=== PATIENT | female | born 1935 | race Caucasian/White ===

== ENCOUNTER 2017-07-09 14:40 | Inpatient (IN) ==
[2017-07-09] MEDS ORDERED: ONDANSETRON 4 MG/2 ML VIAL ONE ×2 (14:54→16:01)
--- NOTE | 2017-07-09 15:20 | CT Report ---
Exam: CT scan of brain without contrast Date: 07/09/2017 Indication: Headache weakness and nausea Comparison: 04/11/2017 Patient's classification: Emergency department Technical: Images were obtained from the skull base to the vertex without the use of intravenous contrast. Dose reduction was performed with decreasing kv and mA and automated exposure Total DLP: 942.4 mGy*cm Findings: The brainstem is unremarkable. The cerebellum is intact. There is an old lacunar infarction in the right basal ganglia unchanged from prior exam. Several small lacunar infarcts are present on the right Small vessel changes are present in the periventricular and subcortical white matter regions bilaterally. The paranasal sinuses reveal near complete opacification of the left maxillary sinus. Remaining paranasal sinuses are unremarkable. Globes and sella and mastoids are intact. Impression: 1. 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 2. Small vessel ischemic change 3. No acute hemorrhage, infarction or mass effect clearly seen. PROCEDURE INTERPRETED AT [facility] DEPARTMENT OF RADIOLOGY Final Report Signed by: Dr. Hoang Monson
[2017-07-09 15:35] LABS: Basophils # 0.1 10*3/uL (0.0-0.2); Basophils % 0.8 % (0.0-0.8); Eosinophils # 0.3 10*3/uL (0.0-0.87); Eosinophils % 3.9 % (0.00-10.9); Hemoglobin 15.2 GM/DL (12.0-16.0); Immature Granulocytes % 0.2 %; Immature Granulocytes Absolute 0.02 #; Lymphocytes # 2.9 10*3/uL (1.4-4.0); Lymphocytes % 33.9 % (21.3-54.2); Mean Corpuscular HGB Conc 33.8 GM/DL (32-36); Mean Corpuscular Hemoglobin 30 PG (27-34); Mean Corpuscular Volume 88.9 FL (87-102); Mean Platelet Volume 11.7 FL (9.6-12.0); Monocytes # 0.8 10*3/uL (0.11-0.8); Monocytes % 9.7 % (1.7-12.7); Neutrophils # 4.3 10*3/uL (1.4-7.4); Neutrophils % 51.5 % (38.7-73.9); Platelet Count 190 T/CUMM (130-400); Red Blood Count 5.06 MC/CUMM (3.8-5.5); Red Cell Distribution Width 13.9 % (9.3-17.3); White Blood Count 8.4 T/CUMM (4-12)
--- NOTE | 2017-07-09 15:35 | EKG Report ---
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
[2017-07-09 15:52] LABS: Alanine Aminotransferase 25 U/L (13-56); Albumin 3.9 G/DL (3.4-5.0); Alkaline Phosphatase 97 U/L (45-117); Amylase 51 U/L (25-115); Aspartate Amino Transferase 24 U/L (0-37); Blood Urea Nitrogen 24 MG/DL (7-18); Calcium 9.2 MG/DL (8.5-10.1); Glucose 167 MG/DL (74-106); Osmolality,Calculated 286.4 MOS/KG (273-304); Potassium 4.2 MMOL/L (3.5-5.1); Sodium 140 MMOL/L (136-145); Total Protein 7.2 G/DL (6.4-8.3); Troponin I Only < 0.015 NG/ML (0.00-0.045)
[2017-07-09] MEDS ORDERED: HYDROmorphone 2 MG/1 ML VIAL ONE (16:01)
[2017-07-09] MEDS ORDERED: HYDROmorphone 2 MG/1 ML VIAL IV STA (16:02)
[2017-07-09] MEDS ORDERED: ONDANSETRON 4 MG/2 ML VIAL IV STA ×2 (16:02→16:08)
[2017-07-09] MEDS ORDERED: SODIUM CHLORIDE 0.9% 1,000 ML IV STA (16:08)
--- NOTE | 2017-07-09 16:17 | Emergency Department Note ---
Bharat Helm Manpreet, am scribing for, and in the presence of, Baylee Palma DO 15: 08. ILouie Debra, DO, personally performed the services described in this documentation, ascribed by Dave Nicholson in my presence, and it is both accurate and complete 616 . Arrival - Arrival Chief Complaint: Syncope ED Nursing Triage Note: pt walked outof her house and got dizzy with nausea. then pt passed out. pt had lt facial droop per daughter. no droop noted at triage. acu check is 160 Mode of Arrival: Stretcher Limitations: No Limitations Source: Family (Daughter) - History of Present Illness HPI Narrative: Pt is a 82 y/o female who presents to the ED with CC of getting dizzy and passing out with N/V. Pt is accompanied by her daughter who states the pt had a facial droop and had a stroke 3 years ago with no residual deficits. Pt apparently passed out again while in the room and c/o of a AGUAYO. Pt is noted to have left sided facial dropping and vomiting yellowish-green phlegm.Pt has a PMHx of CHF, CVA, A-fib, and HTN. Pt was responsive to questions and stated she felt tired and wanted to sleep. No other pains/complaints reported to the ED. Onset (ago): hour(s) Consistency: constant Severity: moderate Allergies/Adverse Reactions: Allergies Allergy/AdvReac Type Severity Reaction Status Date / Time codeine Allergy ANAPHYLAXIS Verified 02/22/15 21:22 Penicillins Allergy ANAPHYLAXIS Verified 02/22/15 21:22 Home Medications: Home Medications Medication Instructions Recorded Confirmed Type ALPRAZolam [Xanax] 0.5 mg PO Q6H 02/22/15 02/22/15 History Apixaban [Eliquis] 5 mg PO BID 02/22/15 02/22/15 History Carbidopa/Levodopa [Carbidopa-Levo 1 each PO DAILY 02/22/15 02/22/15 History 25-100 mg Odt] Ferrous Sulfate 325 mg PO DAILY 02/22/15 02/22/15 History Levothyroxine Tab [Synthroid Tab] 100 mcg PO DAILY@0700 02/22/15 02/22/15 History Montelukast Tab [Singulair Tab] 10 mg PO DAILY 02/22/15 02/22/15 History Pantoprazole Tab [Protonix Tab] 40 mg PO DAILY 02/22/15 02/22/15 History Trazodone HCl 100 mg PO BEDTIME 02/22/15 02/22/15 History buPROPion HCl [Bupropion Xl] 300 mg PO DAILY 02/22/15 02/22/15 History metFORMIN [Glucophage] 500 mg PO BID W/MEALS 02/22/15 02/22/15 History Digoxin Tab [Lanoxin Tab] 0.25 mg PO DAILY@1300 #30 tablet 02/26/15 Rx Insulin Detemir [Levemir] 15 unit SUBCUT DAILY W/SUPPER #10 02/26/15 Rx ml Magnesium Oxide 400 mg PO BID #60 tablet 02/26/15 Rx Metoprolol Tartrate Tab [Lopressor 50 mg PO BID #60 tablet 02/26/15 Rx Tab] Ibuprofen Tab [Motrin Tab] 600 mg PO TID #21 tablet 03/21/16 Rx Clindamycin Cap [Cleocin Cap] 300 mg PO Q8HR #21 capsule 04/11/17 Rx traMADol TAB [Ultram] 50 mg PO Q6H #20 tablet 04/11/17 Rx Review of System - Review of System 12 point system: reviewed and no additional remarkable complaints except as stated - Review of System Constitutional: Present: diaphoresis, weakness, other (Dizzy). Absent: chills, fever Respiratory: Absent: cough, respiratory distress, wheezing Cardiovascular: Present: syncope. Absent: chest pain, dyspnea on exertion Gastrointestinal: Present: nausea, vomiting. Absent: diarrhea Neurological: Present: headache. Absent: numbness, paresthesias Medical,Surgical,& Family Hx - Medical History Cardio: History of: Cardiac Dysrhythmia (recently treated for atrial flutter by [place] engineer systems who placed the pat), CHF, Hypertension HEENT: History of: Ear Problem Endocrine: History of: Diabetes Mellitus (NIDDM) Respiratory: History of: Asthma Gastrointestinal: History of: Gastrointestinal Bleed - Surgical History Abdominal Surgeries: Surgical HX of: Cholecystectomy - Family History Family History: Reports;: Family Diabetes (brother and son), Family Heart Disease (brother and sister), Family Hypertension (brother, son) - Social History Smoking Status: Never smoker Frequency of Alcohol Use: None Type of Drug Use: None Exam Vital Signs: Vital Signs Temperature 97.5 F L 07/09/17 14:46 Pulse Rate 98 H 07/09/17 14:46 Respiratory Rate 20 07/09/17 15:18 Blood Pressure 155/89 07/09/17 14:46 O2 Sat by Pulse Oximetry 95 07/09/17 14:46 - General General appearance: alert - Head Head exam: Present: atraumatic, normocephalic - Eye Eye exam: Present: normal appearance, PERRL, EOMI - ENT ENT exam: Present: normal exam, normal oropharynx, TM's normal bilaterally - Neck Neck exam: Present: normal inspection, full ROM - Chest Chest inspection: Present: normal inspection, symmetric chest wall rise. Absent : tenderness - Respiratory Respiratory exam: Present: normal lung sounds bilaterally. Absent: respiratory distress - Cardiovascular Cardiovascular exam: Present: regular rate, irregular rhythm - Abdominal Exam Abdominal exam: Present: soft, normal bowel sounds - Extremities Exam Extremities exam: Present: normal inspection, full ROM. Absent: tenderness - Back Exam Back exam: Present: normal inspection, full ROM. Absent: tenderness - Psychiatric Psychiatric exam: Present: normal affect, normal mood - Skin Skin exam: Present: diaphoresis. Absent: normal color (Pale) Course Course Narrative: Spoke with Dr. Miguel who will admit patient. I believe it is patient's be put in the ICU for closer observation. Dr. Miguel agrees. Patient is stable at this time Results - Labs CBC & BMP: 07/09/17 14:58 07/09/17 14:58 Lab Results: I have reviewed the patients labs Labs: Laboratory Tests 07/09/17 14:58 WBC 8.4 RBC 5.06 Hgb 15.2 Hct 45.0 MCV 88.9 MCH 30 MCHC 33.8 RDW 13.9 Plt Count 190 MPV 11.7 Neut % (Auto) 51.5 Lymph % (Auto) 33.9 [place] % (Auto) 9.7 Eos % (Auto) 3.9 Baso % (Auto) 0.8 Neut # (Auto) 4.3 Lymph # (Auto) 2.9 [place] # (Auto) 0.8 Eos # (Auto) 0.3 Baso # (Auto) 0.1 Immature Gran % 0.2 Nucleated RBC % 0.0 Immature Gran # 0.02 Nucleated RBCs # 0.00 Immature Plt Fraction 0.0 Laboratory Tests 07/09/17 14:58 Sodium 140 Potassium 4.2 Chloride 108 H Carbon Dioxide 24 Anion Gap 12.2 BUN 24 H Creatinine 1.00 GFR Calculation 54 BUN/Creatinine Ratio 24.00 H Glucose 167 H Calculated Osmolality 286.4 Calcium 9.2 Magnesium 2.0 Total Bilirubin 0.80 AST 24 ALT 25 Alkaline Phosphatase 97 Total Creatine Kinase 51 CK-MB (CK-2) < 1.0 Troponin I < 0.015 Total Protein 7.2 Albumin 3.9 Globulin 3.3 Albumin/Globulin Ratio 1.1 Amylase 51 Lipase 187.0 Laboratory Tests 07/09/17 14:58 B-Natriuretic Peptide 208 H - Diagnostic Findings Procedure: CT: report reviewed by me ("CT Head w/o Con: 1. 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 2. Small vessel ischemic change. 3. No acute hemorrhage, infarction or mass effect clearly seen.") Disposition Clinical Impression: Vasovagal syncope, Dehydration, Nausea & vomiting Case discussed with: patient Disposition: Still a Patient Condition: Guarded Time of Disposition: 16:36
[2017-07-09] MEDS ORDERED: ONDANSETRON 4 MG/2 ML VIAL IV PRN (16:38)
--- NOTE | 2017-07-09 16:47 | EKG Report ---
Stationary ECG Study 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
--- NOTE | 2017-07-09 16:57 | Family Practice History&Phys ---
Assessment and Plan (1) Syncopal episodes Status: Acute Assessment and plan: Multiple, possibly from cardiac origin versus dehydration, will follow cardiology's recommendation Continue IV fluids, n.p.o., on Zofran for nausea vomiting, admit to cCU, under Dr. Greenberg service 2. Generalized weakness, possibly secondary to IV VD, 3. Continue Synthroid for hypothyroidism 4. Hyperglycemia, will do sliding scale, fingersticks glucose 5.HTN ,stable, continue current antihypertensives, Current Visit: Yes Qualifiers: Qualified Code(s): R55 - Syncope and collapse (2) Cardiac dysrhythmia, unspecified Status: Acute Current Visit: Yes (3) Nausea & vomiting Status: Acute Current Visit: Yes (4) Dehydration Status: Acute Current Visit: Yes (5) Hypothyroidism Status: Chronic Current Visit: Yes (6) Essential hypertension Status: Chronic Current Visit: Yes (7) Alzheimer's dementia Status: Chronic Current Visit: Yes (8) Depression Status: Chronic Current Visit: Yes Qualifiers: Depression Type: major depressive disorder (9) Generalized weakness Status: Acute Current Visit: Yes (10) Hyperglycemia Status: Chronic Current Visit: Yes History of Present Illness Chief complaint: syncopial episodes today, N/V/D since 1 week History of present illness: Ms. Miranda is a 82 year old female PCP: , seen him in clinic 4 weeks ago Consult done to [employer] Technician,Neurologist, Has h/o hypothyroidism, hypertension, depression, Alzheimer's dementia, GERD, hyperglycemia on diet and lifestyle changes history obtained from grand daughter and daughter , , pt was with nausea , vomiting , diarrhea since 1 week, pt passed out while walking out of the house at 1.30 pm today, was caught by grand son,no head injury, last meal last night, today drank only soda pop. last BM not sure, no fever,no chest pain , no SOB reported by the patient in the past week the caregivers dizzy since few days, atrial fib 3 years ago, not on meds , was only on asprin hypothyroid , on synthroid 100 mcg, last TSH from clinic 0.59 A1c from 05/2016 was 5.1, Patient is drowsy, mentions feels sleepy. Patient was throwing up, stomach contents yellow bile colored, no blood was noticed. Also mentioned she hurts in her epigastric area. Patient was noted to go into the cardiac dysrhythmia while in the ER, was paced externally, hematologist Dr. Zafar was consulted immediately Reviewed clinic note from 06/08/2017, Patient taking Protonix 40 daily, Aricept 10 mg nightly, Namenda 28 mg extended release daily were stopped and Namzaric 28-10mg Q daily was started Celexa 20 mg p.o. daily, levothyroxine 100 mcg p.o. daily, bupropion 300 mg extended release 1 tablet daily , Lopressor 50 mg half tablet daily, aspirin 81 mg, trazodone 100 mg half tablet nightly Home Medications Medication Instructions Recorded Confirmed Type Pantoprazole Tab [Protonix Tab] 40 mg PO DAILY 02/22/15 07/09/17 History Trazodone HCl 100 mg PO BEDTIME 02/22/15 07/09/17 History Aspirin EC Tab 81 mg PO DAILY 07/09/17 07/09/17 History Citalopram [CeleXA] 40 mg PO DAILY 07/09/17 07/09/17 History Levothyroxine Tab [Synthroid Tab] 100 mcg PO DAILY@0700 07/09/17 07/09/17 History Meloxicam [Mobic] 7.5 mg PO DAILY 07/09/17 07/09/17 History Memantine HCl/Donepezil HCl 1 capsule PO QPM 07/09/17 07/09/17 History [Namzaric 28-10 mg] Metoprolol Tartrate Tab [Lopressor 25 mg PO DAILY 07/09/17 07/09/17 History Tab] Montelukast Tab [Singulair Tab] 10 mg PO DAILY 07/09/17 07/09/17 History buPROPion [Wellbutrin] 300 mg PO DAILY 07/09/17 07/09/17 History Allergies Allergy/AdvReac Type Severity Reaction Status Date / Time codeine Allergy ANAPHYLAXIS Verified 02/22/15 21:22 Penicillins Allergy ANAPHYLAXIS Verified 02/22/15 21:22 - Constitutional Constitutional: Present: as per HPI - EENT Eyes: Present: as per HPI Nose, mouth and throat: Present: as per HPI - Cardiovascular Cardiovascular: Present: as per HPI - Respiratory Respiratory: Present: as per HPI - Gastrointestinal Gastrointestinal: Present: as per HPI - Genitourinary Genitourinary: Present: as per HPI - Musculoskeletal Musculoskeletal: Present: as per HPI - Neurological Neurological: Present: as per HPI - Psychiatric Psychiatric: Present: as per HPI - Endocrine Endocrine: Present: as per HPI - Hematologic/Lymphatic Hematologic/Lymphatic: Present: as per HPI Medical,Surgical,& Family Hx - Medical History Cardio: History of: Cardiac Dysrhythmia (recently treated for atrial flutter by [place] hematologist who placed the pat), CHF, Hypertension HEENT: History of: Ear Problem Endocrine: History of: Diabetes Mellitus (NIDDM) Respiratory: History of: Asthma Gastrointestinal: History of: Gastrointestinal Bleed - Surgical History Abdominal Surgeries: Surgical HX of: Cholecystectomy - Family History Family History: Reports;: Family Diabetes (brother and son), Family Heart Disease (brother and sister), Family Hypertension (brother, son) - Social History Smoking Status: Never smoker Frequency of Alcohol Use: None Type of Drug Use: None Exam - Constitutional Vitals: Period Temp Pulse Resp BP Sys/Mcintyre Pulse Ox Last 24 Hr 97.5 F-97.5 F 98-98 18-20 155-155/89-89 95 Exam: Examination: GENERAL:drowsy but can be awaken, fatigued , elderly female pt, pt is throwing up while examining put O2 NC 2 lit, on ext pacemaker HEENT: decreased hearing,PERRLA. EOMI. Mucous membranes are moist. NECK: Neck is supple. No JVD. No carotid bruit. No thyromegaly. CVS: Regular rate and rhythm, heart rate of 97. S1 and S2 are normal. RESPIRATORY: Clear to ausculation bilaterally , No wheezes, rales or rhonchi. ABDOMEN: Soft and epigastric tenderness, no guarding, no rigidity, no rebound tenderness. Bowel sounds are present. No hepatosplenomegaly. EXT: No edema. LAWYER: Cranial nerves 2-12 grossly intact. Results - Labs CBC & BMP: 07/10/17 04:29 07/10/17 04:29 Lab Results: I have reviewed the past 24 hour labs - Impressions CT head, 07/09/2017 Impression: 1. 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 2. Small vessel ischemic change 3. No acute hemorrhage, infarction or mass effect clearly seen.
[2017-07-09] MEDS ORDERED: ATROPINE 1 MG/1 ML VIAL ONE (17:14)
--- NOTE | 2017-07-09 17:49 | Cardiology Consult Note ---
Assessment and Plan - Time spent with patient Time spent with patient: Greater than 30 minutes (1) Paroxysmal atrial fibrillation Status: Chronic Current Visit: Yes (2) Nausea & vomiting Status: Acute Current Visit: Yes (3) Essential hypertension Status: Chronic Current Visit: Yes (4) Hypothyroidism Status: Chronic Current Visit: Yes (5) Alzheimer's dementia Status: Chronic Current Visit: Yes (6) Cardiac dysrhythmia, unspecified Status: Acute Assessment and plan: bradycardia - sinus arrest versus Complete heart block. I will try to locate strips or capture if this recurs. Current Visit: Yes History of Present Illness - Data of Consult Patient: known to practice within the last 3 years Consult date: 07/09/17 Requesting Physician: Baylee Palma Primary care physician: Sam Greenberg (Carlos - Angeline) - Consult Narrative Reason for consult: Bradycardia History of present illness: Ms. Miranda is a 82 year old female who is extremely hard of hearing. We had to scream to communicate with the patient. He was very difficult to communicate during the exam. This may have limited by review of systems. The patient states that she came to the hospital because she went out in the yard to sit with her son and was sitting in the chair when she just fell over. I asked if she had palpitations and she said more than once that "no my heart is fine. . . I do not have any heart problems." The patient however apparently has a history of atrial fibrillation and has beeb on 2 AV andrea blocking agents at significant doses in the past. The have been decreased and she is currently taking metoprolol 25 mg daily. She was previously on metoprolol 50mg BID and digoxin 0.25mg daily but this has been stopped. Apparently she has had atrial fibrillation in the past and is on anticoagulation for this. Her Daughter reports that she has a history of atrial fibrillation seen at [facility] for "heart failure" and atrial fibrillation. She was seen there by Dr. Chan but now sees Dr. Gonzalez longitudinally in the clinic. I was called emergency room to see the patient upon arrival was not there I saw and examined the patient and she was being transferred to her bed in the CCU. She was in sinus rhythm with a first-degree AV block with a heart rate of 90. She has had several episodes of nausea and emesis in the emergency room with significant pauses that were symptomatic. Her daughter reports that the longest pause in the ED was not associated with nausea or emesis. Her EKG shows a normal QRS duration but a very prolonged MA interval with a P-wave following the T-wave. I do think this is a long MA interval. I ordered a stat digoxin level which is pending but now have learned that she is not on this medication and has not been for some aby. She has a temporary transcutaneous pacer leads on and has antiemetic medication available. She states that she chronically has problems with her stomach and frequently has nausea and vomiting. The patient told me this was chronic but her daughter states that this has been going on for only one week. I had a significantly difficult time communicating with the patient and I thought is was due solely to her difficulty hearing, but her daughter tells me that she also has a significant amount of dementia. She also has underlying diabetes. Given that she is not on the degree of AV andrea blocking agents that I was initially led to believe and that not all episodes of asystole are associated with nausea and vomiting and potentially vagal tone, the patient will likely need a permanent pacemaker. Her daughter who is a nurse and the ER doctor both used the term "asystole" but I have been unable to find any rhythm strips. It is nuclear to me if this is sinus arrest at which point she would clearly need PPM or if high degree AV block. I think a PPM is likely and potentially a LHC may be indicated prior to PPM. I will hold her NOAC and hold her NPO. There will be Atropine at the bedside and the patient will wear transcutaneous pacing pads. I don't think that temporary transvenous pacing is indicated at this point. Hopefully if this recurs, we can document a strip to better undstand the etiology. CC: Sam Greenberg MD - Home Medications and Allergies Home Medications: Home Medications Medication Instructions Recorded Confirmed Type ALPRAZolam [Xanax] 0.5 mg PO Q6H 02/22/15 02/22/15 History Apixaban [Eliquis] 5 mg PO BID 02/22/15 02/22/15 History Carbidopa/Levodopa [Carbidopa-Levo 1 each PO DAILY 02/22/15 02/22/15 History 25-100 mg Odt] Ferrous Sulfate 325 mg PO DAILY 02/22/15 02/22/15 History Levothyroxine Tab [Synthroid Tab] 100 mcg PO DAILY@0700 02/22/15 02/22/15 History Montelukast Tab [Singulair Tab] 10 mg PO DAILY 02/22/15 02/22/15 History Pantoprazole Tab [Protonix Tab] 40 mg PO DAILY 02/22/15 02/22/15 History Trazodone HCl 100 mg PO BEDTIME 02/22/15 02/22/15 History buPROPion HCl [Bupropion Xl] 300 mg PO DAILY 02/22/15 02/22/15 History metFORMIN [Glucophage] 500 mg PO BID W/MEALS 02/22/15 02/22/15 History Digoxin Tab [Lanoxin Tab] 0.25 mg PO DAILY@1300 #30 tablet 02/26/15 Rx Insulin Detemir [Levemir] 15 unit SUBCUT DAILY W/SUPPER #10 02/26/15 Rx ml Magnesium Oxide 400 mg PO BID #60 tablet 02/26/15 Rx Metoprolol Tartrate Tab [Lopressor 50 mg PO BID #60 tablet 02/26/15 Rx Tab] Ibuprofen Tab [Motrin Tab] 600 mg PO TID #21 tablet 03/21/16 Rx Clindamycin Cap [Cleocin Cap] 300 mg PO Q8HR #21 capsule 04/11/17 Rx traMADol TAB [Ultram] 50 mg PO Q6H #20 tablet 04/11/17 Rx Allergies/Adverse Reactions: Allergies Allergy/AdvReac Type Severity Reaction Status Date / Time codeine Allergy ANAPHYLAXIS Verified 02/22/15 21:22 Penicillins Allergy ANAPHYLAXIS Verified 02/22/15 21:22 - Constitutional Constitutional: Present: weakness. Absent: anorexia - EENT Eyes: Absent: blurry vision Ears: Present: decreased hearing - Cardiovascular Cardiovascular: Present: lightheadedness, other (syncope associated with documented pauses). Absent: chest pain at rest, chest pain with activity, claudication, diaphoresis, dyspnea, dyspnea on exertion, edema, radiating jaw, neck or arm pain, orthopnea, palpitations - Respiratory Respiratory: Absent: dyspnea on exertion - Gastrointestinal Gastrointestinal: Absent: abdominal pain - Genitourinary Genitourinary: Absent: abnormal vaginal bleeding, difficulty urinating - Musculoskeletal Musculoskeletal: Absent: arthralgias - Neurological Neurological: Present: memory loss. Absent: abnormal gait - Psychiatric Psychiatric: Present: anxiety. Absent: depression - Endocrine Endocrine: Absent: cold intolerance, heat intolerance - Hematologic/Lymphatic Hematologic/Lymphatic: Absent: easy bleeding, easy bruising Medical,Surgical,& Family Hx - Medical History Cardio: History of: Cardiac Dysrhythmia (recently treated for atrial flutter by [employer] equity analyst who placed the pat), Hypertension HEENT: History of: Ear Problem Endocrine: History of: Diabetes Mellitus (NIDDM) Respiratory: History of: Asthma Gastrointestinal: History of: Gastrointestinal Bleed Other: History of: Miscellaneous Medical Problems (Dementia) - Surgical History Abdominal Surgeries: Surgical HX of: Cholecystectomy - Family History Family History: Reports;: Family Diabetes (brother and son), Family Heart Disease (brother and sister), Family Hypertension (brother, son) - Social History Smoking Status: Never smoker Frequency of Alcohol Use: None Type of Drug Use: None Functional capacity: independent ambulation Physical Examination Vital Signs Temp Pulse Resp BP Pulse Ox 97.5 F L 98 H 18 155/89 95 07/09/17 14:46 07/09/17 14:46 07/09/17 14:46 07/09/17 14:46 07/09/17 14:46 General: Present: Appears Well Neck: Present: Supple Neck, Midline Trachea Cardiac: Present: Reg Rate and Rhythm (HR is 94 and sinus with first degree AV block), S1/S2 Lungs: Present: Normal Exam, Clear Ascult./Percussion Neuro: Present: Cranial Nerve 2-12 Intact Abdomen: Present: Soft, Active Bowel Sounds Skin: Present: Clear Extremities: Absent: Edema Result/EKG - Labs CBC & BMP: 07/09/17 14:58 07/09/17 14:58 Labs: Laboratory Results - last 24 hr 07/09/17 07/09/17 07/09/17 14:58 14:58 14:58 WBC 8.4 RBC 5.06 Hgb 15.2 Hct 45.0 MCV 88.9 MCH 30 MCHC 33.8 RDW 13.9 Plt Count 190 MPV 11.7 Neut % (Auto) 51.5 Lymph % (Auto) 33.9 [place] % (Auto) 9.7 Eos % (Auto) 3.9 Baso % (Auto) 0.8 Neut # (Auto) 4.3 Lymph # (Auto) 2.9 [place] # (Auto) 0.8 Eos # (Auto) 0.3 Baso # (Auto) 0.1 Immature Gran % 0.2 Nucleated RBC % 0.0 Immature Gran # 0.02 Nucleated RBCs # 0.00 Immature Plt Fraction 0.0 Sodium 140 Potassium 4.2 Chloride 108 H Carbon Dioxide 24 Anion Gap 12.2 BUN 24 H Creatinine 1.00 GFR Calculation 54 BUN/Creatinine Ratio 24.00 H Glucose 167 H Calculated Osmolality 286.4 Calcium 9.2 Magnesium 2.0 Total Bilirubin 0.80 AST 24 ALT 25 Alkaline Phosphatase 97 Total Creatine Kinase 51 CK-MB (CK-2) < 1.0 Troponin I < 0.015 B-Natriuretic Peptide 208 H Total Protein 7.2 Albumin 3.9 Globulin 3.3 Albumin/Globulin Ratio 1.1 Amylase 51 Lipase 187.0 - EKG EKG results: interpreted by me (NSR with first degree AV block)
[2017-07-09] MEDS: SODIUM CHLORIDE 0.9% 1,000 ML IV SCH (18:00)
[2017-07-09] MEDS: ENOXAPARIN 40 MG/0.4 ML SYRINGE SUBCUT SCH (18:00)
[2017-07-09] MEDS ORDERED: ATROPINE 1 MG/1 ML VIAL IV PRN (18:38)
[2017-07-09 20:16] LABS: Apearance,Urine CLEAR (Clear); Bilirubin,Urine Negative (Negative); Blood, Urine Negative (Negative); Glucose,Urine (UA) Negative (Negative); Hyaline Casts,Urine 4 /LPF (0-3); Ketones,Urine Negative (Negative); Mucus,Urine Occasional /LPF (Occasional); Nitrite,Urine Negative (Negative); Protein,Urine Negative; RBC,Urine 1 /HPF (0-4); Renal Epithelial Cells,Urine Occasional /HPF (<1); Squamous Epithelial Cell,Urine Occasional /HPF (0-10); Urine Color Yellow (Yellow); Urine Specific Gravity 1.014 (1.001-1.035); Urine Urobilinogen < 2.0 EU/DL (0.2-1.0); WBC,Urine 3 /HPF (0-6)
[2017-07-09] MEDS: DOCUSATE SODIUM 100 MG CAPSULE PO SCH (21:46)
[2017-07-09] MEDS ORDERED: GLUCAGON 1 MG VIAL IM PRN (22:27)
[2017-07-09] MEDS ORDERED: DEXTROSE 50% 25 GM/50 ML SYRINGE IV PRN (22:27)
[2017-07-10] MEDS: SODIUM CHLORIDE 0.9% 1,000 ML IV SCH ×3 (02:00→17:34)
[2017-07-10 04:52] LABS: Basophils # 0.1 10*3/uL (0.0-0.2); Basophils % 0.6 % (0.0-0.8); Eosinophils # 0.1 10*3/uL (0.0-0.87); Eosinophils % 1.7 % (0.00-10.9); Hematocrit 38.3 VOL% (35.7-47.0); Immature Granulocytes % 0.4 %; Immature Granulocytes Absolute 0.03 #; Lymphocytes # 2.1 10*3/uL (1.4-4.0); Lymphocytes % 25.4 % (21.3-54.2); Mean Corpuscular HGB Conc 32.9 GM/DL (32-36); Mean Corpuscular Hemoglobin 30 PG (27-34); Mean Corpuscular Volume 90.5 FL (87-102); Mean Platelet Volume 11.5 FL (9.6-12.0); Monocytes # 0.8 10*3/uL (0.11-0.8); Monocytes % 9.5 % (1.7-12.7); Neutrophils # 5.3 10*3/uL (1.4-7.4); Neutrophils % 62.4 % (38.7-73.9); Red Blood Count 4.23 MC/CUMM (3.8-5.5); Red Cell Distribution Width 13.7 % (9.3-17.3); White Blood Count 8.4 T/CUMM (4-12)
[2017-07-10 05:09] LABS: Hemoglobin 12.6 GM/DL (12.0-16.0); Platelet Count 140 T/CUMM (130-400)
[2017-07-10 05:31] LABS: Albumin 3.1 G/DL (3.4-5.0); Bilirubin,Total 1.6 MG/DL (0.2-1.0); Calcium 8.1 MG/DL (8.5-10.1); Osmolality,Calculated 283.1 MOS/KG (273-304); Potassium 4.1 MMOL/L (3.5-5.1); Total Protein 5.4 G/DL (6.4-8.3)
[2017-07-10 05:58] LABS: Magnesium 1.9 MG/DL (1.8-2.4); Phosphorous 3.2 MG/DL (2.5-4.9)
[2017-07-10] MEDS: LEVOTHYROXINE 100 MCG VIAL IV SCH (06:24)
[2017-07-10] MEDS: INSULIN REGULAR 100 UNIT/ML SUBCUT SCH ×4 (07:31→20:35)
--- NOTE | 2017-07-10 07:46 | XRay Report ---
Portable chest Date: 07/10/2017 Clinical history: Shortness of breath Comparison: 02/22/2015 Technique: Portable AP sitting chest Findings: The heart is normal in size. Exam limited by overlapping artifactual densities. Chronic scarring in the lungs with possible progressive parenchymal findings in the right midlung zone. Stable mediastinum and osseous structures. Impression: Limited exam. Chronic scarring with possible progressive atelectasis/infiltration in the right midlung zone. PROCEDURE INTERPRETED AT [facility] DEPARTMENT OF RADIOLOGY Final Report Signed by: Dr. Kinjal Brewer
--- NOTE | 2017-07-10 07:47 | XRay Report ---
Exam: XR abdomen 1V Date: 07/10/2017 4:00 AM Comparison: None Indication: Generalized abdominal pain Technique:[Supine abdomen] Findings: Nonobstructed bowel gas pattern. Prior cholecystectomy with postoperative findings in the pelvis. Degenerative changes are noted. Impression: Nonobstructed bowel gas pattern. Post operative changes noted. PROCEDURE INTERPRETED AT [facility] DEPARTMENT OF RADIOLOGY Final Report Signed by: Dr. Kinjal Brewer
[2017-07-10] MEDS: DOCUSATE SODIUM 100 MG CAPSULE PO SCH ×2 (08:15→20:16)
--- NOTE | 2017-07-10 08:47 | Family Practice Progress Note ---
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 fib 3 years ago. Patient seen and examined in ICU, is hard of hearing, Mentions that she is feeling better than yesterday, Nausea and vomiting improved, nothing by mouth currently, on IV fluids. No fever, chest pain, shortness of breath, No overnight events reported by the nurse. Exam (Progress Note) - Constitutional Vitals: Period Temp Pulse Resp BP Sys/Mcintyre Pulse Ox Last 24 Hr 97.5 F-98.7 F 85-101 12-25 109-155/55-91 95-100 Exam: Examination: General Examination: GENERAL APPEARANCE: alert and awake,, in no acute distress, elderly female patient, lying in bed, [place] in place, with 2 L nasal cannula oxygen. HEENT: Decreased hearing EYES: extraocular movement intact (EOMI), conjunctiva clear, normal. NECK/THYROID: neck supple, full range of motion, no cervical lymphadenopathy, no thyromegaly. HEART: regular rate and rhythm, no murmurs, rubs, gallops. LUNGS: clear to auscultation bilaterally, ABDOMEN: soft, nontender, nondistended, no organomegaly , bowel sounds present. EXTREMITIES: no edema. NEUROLOGIC: alert and oriented, cranial nerves 2-12 grossly intact, Results - Labs CBC & BMP: 07/10/17 04:29 07/10/17 04:29 Lab Results: I have reviewed the past 24 hour labs - Impressions chest xray , 07/10/17 Impression: Limited exam. Chronic scarring with possible progressive atelectasis/infiltration in the right midlung zone. CT HEAD, 07/10/17 Impression:, Nonobstructed bowel gas pattern. Post operative changes noted. Assessment and Plan (1) Syncopal episodes Status: Acute Assessment and plan: IMPROVING,Continue IV fluids, n.p.o., on Zofran for nausea vomiting, follow cardiology recommendations, 1. pneumonia, start Azithromycin,day 1 today, after blood Cx , 2. Generalized weakness,improving , possibly secondary to IV VD, 3. Continue Synthroid for hypothyroidism 4. Hyperglycemia,continue sliding scale, fingersticks glucose 5.HTN ,stable, continue current antihypertensives, Current Visit: Yes Qualifiers: Qualified Code(s): R55 - Syncope and collapse (2) Cardiac dysrhythmia, unspecified Status: Acute Current Visit: Yes (3) Nausea & vomiting Status: Acute Current Visit: Yes (4) Dehydration Status: Acute Current Visit: Yes (5) Hypothyroidism Status: Chronic Current Visit: Yes (6) Essential hypertension Status: Chronic Current Visit: Yes (7) Alzheimer's dementia Status: Chronic Current Visit: Yes (8) Depression Status: Chronic Current Visit: Yes Qualifiers: Depression Type: major depressive disorder (9) Generalized weakness Status: Acute Current Visit: Yes (10) Hyperglycemia Status: Chronic Current Visit: Yes (11) Pneumonia Status: Acute Current Visit: Yes
--- NOTE | 2017-07-10 09:13 | Cardiology Progress Note ---
Assessment and Plan - Time spent with patient Time spent with patient: Less than 30 minutes (1) Paroxysmal atrial fibrillation Status: Chronic Assessment and plan: See plan of care listed below. Current Visit: Yes (2) Nausea & vomiting Status: Acute Assessment and plan: See plan of care listed below. Current Visit: Yes (3) Essential hypertension Status: Chronic Assessment and plan: See plan of care listed below. Current Visit: Yes (4) Hypothyroidism Status: Chronic Assessment and plan: See plan of care listed below. Current Visit: Yes (5) Alzheimer's dementia Status: Chronic Assessment and plan: See plan of care listed below. Current Visit: Yes (6) Cardiac dysrhythmia, unspecified Status: Acute Assessment and plan: See plan of care listed below. Current Visit: Yes Cardiology - PN: Subj Interval history: Application Support Developer: Dr. Gonzalez PCP: Dr. Greenberg SUMMARY: Ms. Miranda is an 82 y/o WF, extremely hard of hearing, who presented to the hospital after a fall at home. She has a history of PAF, HTN, dementia, hypothyroidism. Apparently she was sitting outside when she just fell over. She was noted to have a sinus rhythm with first-degree AV block and HR of 90 in the ER along with significant pauses that were symptomatic. She is on metoprolol 25mg po daily at home for PAF. Her EKG showed a normal QRS duration but a very prolonged OR interval with a P-wave following the T-wave. JULY 10, 2017 UPDATE: Ms. Miranda is seen in the CCU, resting in bed in no acute distress. She has had no furthery dysrhythmias or pauses noted per review of her clinical documentation spec. Regarding her admission events, it is unclear if this is sinus arrest, at which point she would need PPM, or if it is a high degree AV block. It was thought she may likely need a PPM and potentially a LHC prior to PPM. I have discussed with Dr. Vidales and he will further review her chart to evaluate further cardiac evaluation. She is hemodynamically stable at this time. We will continue to monitor. ASSESSMENT/PLAN: 1. PAROXYSMAL ATRIAL FIBRILLATION - She has been in a normal sinus rhythm but is not currently on any andrea blocking agent. NOAC was held pending possible PPM and LHC. Will further discuss with Dr. Vidales and await additional recommendations. 2. NAUSEA AND VOMITING - No further episodes. 3. ESSENTIAL HYPERTENSION - Currently well controlled. Will continue to monitor and adjust accordingly. 4. HYPOTHYROIDISM - She is on synthroid 50mcg daily. 5. ALZHEIMER'S DEMENTIA - Chronic. 6. CARDIAC DYSRHYTHMIA - bradycardia - sinus arrest versus Complete heart block. Will try capture if this recurs. Strips scanned in from date of admission show significant pauses. No recurrent pauses noted since holding beta christen. Exam (Progress Note) - Constitutional Vitals: Period Temp Pulse Resp BP Sys/Mcintyre Pulse Ox Last 24 Hr 97.5 F-98.7 F 85-101 12-25 109-155/55-91 95-100 Exam: General: Present: Appears Well, No Apparent Distress. Pleasant and cooperative. HEENT: Present: PERRL, Normocephaly, atraumatic. Mucus Membranes Moist. No jaundice noted. Conjunctiva moist and clear. Neck: Present: Supple Neck, Midline Trachea, No Masses, No tenderness Cardiac: Present: Regular Rate and Rhythm, No Murmur Lungs: Present: clear to auscultation bilaterally, no wheezes, rhonchi, rales. Neuro: Present: Awake, alert, and oriented x3. Moves all extremities well without hemiparesis or paralysis. Grossly Intact. Absent: Resting Tremor, Essential Tremor Abdomen: Present: Soft, Active Bowel Sounds, No Masses, Non-Tender, nondistended. No abdominal bruit or thrill noted. Skin: Present: Clear. Absent: Rash, No skin breakdown. Back: Normal inspection, no vertebral tenderness. Musculoskeletal: Present: No Fluid Collection, No Pain, Normal Range of Motion Extremities: Present: Normal Gait, No Clubbing, No Cyanosis, Upper Extr. Pulses 2+, Lower Extr. Pulses 2+, No edema. Capillary refill less than 3 seconds. Result/EKG - Labs CBC & BMP: 07/10/17 04:29 07/10/17 04:29 Lab Results: I have reviewed the past 24 hour labs Labs: Laboratory Results - last 24 hr 07/09/17 07/09/17 07/09/17 14:28 14:58 14:58 WBC 8.4 RBC 5.06 Hgb 15.2 Hct 45.0 MCV 88.9 MCH 30 MCHC 33.8 RDW 13.9 Plt Count 190 MPV 11.7 Neut % (Auto) 51.5 Lymph % (Auto) 33.9 [place] % (Auto) 9.7 Eos % (Auto) 3.9 Baso % (Auto) 0.8 Neut # (Auto) 4.3 Lymph # (Auto) 2.9 [place] # (Auto) 0.8 Eos # (Auto) 0.3 Baso # (Auto) 0.1 Immature Gran % 0.2 Nucleated RBC % 0.0 Immature Gran # 0.02 Nucleated RBCs # 0.00 Immature Plt Fraction 0.0 Sodium 140 Potassium 4.2 Chloride 108 H Carbon Dioxide 24 Anion Gap 12.2 BUN 24 H Creatinine 1.00 GFR Calculation 54 BUN/Creatinine Ratio 24.00 H Glucose 167 H POC Glucose Hemoglobin A1c Calculated Osmolality 286.4 Calcium 9.2 Phosphorus Magnesium 2.0 Total Bilirubin 0.80 AST 24 ALT 25 Alkaline Phosphatase 97 Total Creatine Kinase 51 CK-MB (CK-2) < 1.0 Troponin I < 0.015 B-Natriuretic Peptide Total Protein 7.2 Albumin 3.9 Globulin 3.3 Albumin/Globulin Ratio 1.1 Amylase 51 Lipase 187.0 Urine Color Urine Appearance Urine pH Ur Specific [place] Urine Protein Urine Glucose (UA) Urine Ketones Urine Blood Urine Nitrate Urine Bilirubin Urine Urobilinogen Urine Leukocytes Urine RBC Urine WBC Ur Squamous Epith Cells Ur Renal Epithelial Cell Hyaline Casts Urine Mucus Ur Culture Indicated? Digoxin 0.10 L 07/09/17 07/09/17 07/10/17 14:58 19:50 04:29 WBC 8.4 RBC 4.23 Hgb 12.6 D Hct 38.3 MCV 90.5 MCH 30 MCHC 32.9 RDW 13.7 Plt Count 140 D MPV 11.5 Neut % (Auto) 62.4 Lymph % (Auto) 25.4 [place] % (Auto) 9.5 Eos % (Auto) 1.7 Baso % (Auto) 0.6 Neut # (Auto) 5.3 Lymph # (Auto) 2.1 [place] # (Auto) 0.8 Eos # (Auto) 0.1 Baso # (Auto) 0.1 Immature Gran % 0.4 Nucleated RBC % 0.0 Immature Gran # 0.03 Nucleated RBCs # 0.00 Immature Plt Fraction 0.0 Sodium Potassium Chloride Carbon Dioxide Anion Gap BUN Creatinine GFR Calculation BUN/Creatinine Ratio Glucose POC Glucose Hemoglobin A1c Calculated Osmolality Calcium Phosphorus Magnesium Total Bilirubin AST ALT Alkaline Phosphatase Total Creatine Kinase CK-MB (CK-2) Troponin I B-Natriuretic Peptide 208 H Total Protein Albumin Globulin Albumin/Globulin Ratio Amylase Lipase Urine Color Yellow Urine Appearance Clear Urine pH 5.0 Ur Specific [place] 1.014 Urine Protein Negative Urine Glucose (UA) Negative Urine Ketones Negative Urine Blood Negative Urine Nitrate Negative Urine Bilirubin Negative Urine Urobilinogen < 2.0 H Urine Leukocytes Trace Urine RBC 1 Urine WBC 3 Ur Squamous Epith Cells Occasional Ur Renal Epithelial Cell Occasional Hyaline Casts 4 Urine Mucus Occasional Ur Culture Indicated? Not indicated Digoxin 07/10/17 07/10/17 07/10/17 04:29 04:29 04:29 WBC RBC Hgb Hct MCV MCH MCHC RDW Plt Count MPV Neut % (Auto) Lymph % (Auto) [place] % (Auto) Eos % (Auto) Baso % (Auto) Neut # (Auto) Lymph # (Auto) [place] # (Auto) Eos # (Auto) Baso # (Auto) Immature Gran % Nucleated RBC % Immature Gran # Nucleated RBCs # Immature Plt Fraction Sodium 142 Potassium 4.1 Chloride 109 H Carbon Dioxide 27 Anion Gap 10.1 BUN 18 Creatinine 0.80 GFR Calculation 69 BUN/Creatinine Ratio 22.00 H Glucose 86 POC Glucose Hemoglobin A1c 5.8 Calculated Osmolality 283.1 Calcium 8.1 L Phosphorus 3.2 Magnesium 1.9 Total Bilirubin 1.60 H AST 20 ALT 21 Alkaline Phosphatase 84 Total Creatine Kinase CK-MB (CK-2) Troponin I B-Natriuretic Peptide Total Protein 5.4 L Albumin 3.1 L Globulin 2.3 Albumin/Globulin Ratio 1.3 Amylase Lipase Urine Color Urine Appearance Urine pH Ur Specific [place] Urine Protein Urine Glucose (UA) Urine Ketones Urine Blood Urine Nitrate Urine Bilirubin Urine Urobilinogen Urine Leukocytes Urine RBC Urine WBC Ur Squamous Epith Cells Ur Renal Epithelial Cell Hyaline Casts Urine Mucus Ur Culture Indicated? Digoxin 07/10/17 07:28 WBC RBC Hgb Hct MCV MCH MCHC RDW Plt Count MPV Neut % (Auto) Lymph % (Auto) [place] % (Auto) Eos % (Auto) Baso % (Auto) Neut # (Auto) Lymph # (Auto) Price # (Auto) Eos # (Auto) Baso # (Auto) Immature Gran % Nucleated RBC % Immature Gran # Nucleated RBCs # Immature Plt Fraction Sodium Potassium Chloride Carbon Dioxide Anion Gap BUN Creatinine GFR Calculation BUN/Creatinine Ratio Glucose POC Glucose 83 Hemoglobin A1c Calculated Osmolality Calcium Phosphorus Magnesium Total Bilirubin AST ALT Alkaline Phosphatase Total Creatine Kinase CK-MB (CK-2) Troponin I B-Natriuretic Peptide Total Protein Albumin Globulin Albumin/Globulin Ratio Amylase Lipase Urine Color Urine Appearance Urine pH Ur Specific [place] Urine Protein Urine Glucose (UA) Urine Ketones Urine Blood Urine Nitrate Urine Bilirubin Urine Urobilinogen Urine Leukocytes Urine RBC Urine WBC Ur Squamous Epith Cells Ur Renal Epithelial Cell Hyaline Casts Urine Mucus Ur Culture Indicated? Digoxin - EKG EKG results: interpreted by me, sinus rhythm
[2017-07-10] MEDS: PANTOPRAZOLE 40 MG TABLET PO SCH (09:46)
[2017-07-10] MEDS: AZITHROMYCIN INJ 500 MG in SODIUM CHLORIDE 0.9% 250 ML IV SCH (12:33)
[2017-07-10] MEDS ORDERED: DIAZEPAM 5 MG TABLET PO ONE (12:58)
[2017-07-10] MEDS ORDERED: VANCOMYCIN 500 MG VIAL IRRIG ONE (12:58)
[2017-07-10] MEDS ORDERED: VANCOMYCIN INJ 1,000 MG in SODIUM CHLORIDE 0.9% 250 ML IV ONE (12:58)
[2017-07-10] MEDS ORDERED: diphenhydrAMINE CAP 25 MG CAPSULE PO ONE (12:58)
[2017-07-10] MEDS ORDERED: VANCOMYCIN 500 MG VIAL ONE ×3 (13:20→14:13)
[2017-07-10] MEDS ORDERED: LIDOCAINE 1%/EPI INJ 20 ML VIAL ONE ×2 (13:20→13:45)
[2017-07-10] MEDS ORDERED: MIDAZOLAM 2 MG/2 ML VIAL ONE (14:01)
[2017-07-10] MEDS ORDERED: HYDROmorphone 2 MG/1 ML VIAL ONE (14:01)
[2017-07-10] MEDS ORDERED: TISSUE ADHESIVE 1 EACH APPLICATOR TOP ONE (14:47)
--- NOTE | 2017-07-10 14:52 | Cardiac Pacemaker ---
- Preoperative diagnosis Date of Procedure:: 07/10/17 Preoperative Diagnosis: Documented nonreversible symptomatic bradycardia due to , third degree atrioventricular block Procedure: Procedures performed 1. Percutaneous left subclavian venotomy with sheath placement 2. Placement of atrial and ventricular leads with threshold testing 3. Placement of dual-chamber permanent (note, this is an MRI compatible pacemaker system) The patient had symptomatic bradycardia due to high grade heart block and needed a dual-chamber pacemaker. After informed consent was obtained was taken to catheter prepped and draped in usual sterile manner. We used minimal sedation for this case. We placed 2 J-tipped wires in the left subclavian vein using a modified Seldinger technique in the usual fashion. With then a pocket approximately 2 cm below the left clavicular border using blunt and sharp dissection as well as electrocautery. We then pulled our leads into the pocket from below. Using safe sheaths, we placed a Medtronic 5076-58 centimeter ventricular lead into the right ventricular apex and secured it with a helical coil. Serial number on the ventricular lead is [id number]. Excellent capture and sensing thresholds were achieved. We then used a Medtronic 5076-52 centimeter lead in the atrium. Serial number on the atrial lead was [id number]. Excellent capture and sensing thresholds were achieved. After the sheaths had been removed, we sutured the leads to the pocket floor using Ethibond suture. We then rinsed the pocket with antibiotic solution and then connected the leads to a Medtronic Advisa DR MRI compatible pacemaker model [id number]. Serial number on the pacemaker is [id number]. After the device give been connected to the leads, it was placed in the pocket and sutured pocket floor with Ethibond suture. We then closed the pocket 2 layers using Vicryl suture. We then applied a topical adhesive followed by Steri-Strips and a dressing. There were no apparent complications during the procedure. The patient remained stable throughout the procedure and will now be transferred back to her room for recovery. Anesthesia: minimal conscious sedation Surgeon / Physician: Lexa Vidales Estimated blood loss: minimal Condition: stable Disposition: floor - Medications / Follow-up
--- NOTE | 2017-07-10 15:26 | EKG Report ---
Stationary ECG Study [facility] Test Date: 07/10/2017 3:24:32 PM Pat Name: NIKOLAI CORRIGAN Department: Room: 126 Gender: F Coatings Inspector: MARILYN : 1935 Requested by: Tita Lindquist Order Number: [id number] Reading MD: LACI JIMENEZ Intervals [place] Rate: 111 P: 999 SD: 0 QRS: 28 QRSD: 90 T: 50 QT: 336 QTc: 402 Interpretive Statements ATRIAL FIBRILLATION WITH RAPID VENTRICULAR RESPONSE Electronically Signed On 07-11-17 13:53:13 CDT by LACI JIMENEZ [email or web address]
--- NOTE | 2017-07-10 16:00 | XRay Report ---
History: Lead placement Date: 07/10/2017 Study: Chest x-ray AP portable Comparison exam: 07/10/2017 at 3:11 AM A left subclavian dual-lead transvenous pacemaker is positioned with its leads in generally satisfactory position. There is no pneumothorax. The cardiac silhouette is upper normal in size. There is no mediastinal mass. The pulmonary vasculature is not engorged. There is no new or worsening infiltrate. There is no gross pleural effusion. Osseous structures are unchanged. Impression: No evidence of a pneumothorax: Pacemaker placement PROCEDURE INTERPRETED AT [facility] DEPARTMENT OF RADIOLOGY Final Report Signed by: Dr. Maite Crockett
[2017-07-10] MEDS: ENOXAPARIN 40 MG/0.4 ML SYRINGE SUBCUT SCH (17:54)
[2017-07-11] MEDS: SODIUM CHLORIDE 0.9% 1,000 ML IV SCH (02:04)
[2017-07-11 05:00] LABS: Basophils % 0.5 % (0.0-0.8); Eosinophils # 0.2 10*3/uL (0.0-0.87); Hematocrit 36.8 VOL% (35.7-47.0); Hemoglobin 12.1 GM/DL (12.0-16.0); Immature Granulocytes % 0.3 %; Immature Granulocytes Absolute 0.02 #; Lymphocytes # 1.6 10*3/uL (1.4-4.0); Lymphocytes % 20.2 % (21.3-54.2); Mean Corpuscular HGB Conc 32.9 GM/DL (32-36); Mean Corpuscular Hemoglobin 30 PG (27-34); Mean Corpuscular Volume 90.9 FL (87-102); Mean Platelet Volume 11.8 FL (9.6-12.0); Monocytes # 0.7 10*3/uL (0.11-0.8); Neutrophils # 5.2 10*3/uL (1.4-7.4); Platelet Count 127 T/CUMM (130-400); Red Blood Count 4.05 MC/CUMM (3.8-5.5); Red Cell Distribution Width 13.5 % (9.3-17.3); White Blood Count 7.8 T/CUMM (4-12)
[2017-07-11] MEDS: ACETAMINOPHEN 325 MG TABLET PO PRN ×2 (05:15→20:07)
[2017-07-11 05:50] LABS: Calcium 8.1 MG/DL (8.5-10.1); Magnesium 1.6 MG/DL (1.8-2.4); Osmolality,Calculated 281.1 MOS/KG (273-304); Potassium 3.9 MMOL/L (3.5-5.1)
[2017-07-11] MEDS: LEVOTHYROXINE 100 MCG VIAL IV SCH (06:42)
--- NOTE | 2017-07-11 08:11 | EKG Report ---
Stationary ECG Study [facility] Test Date: 07/11/2017 8:06:08 AM Pat Name: NIKOLAI CORRIGAN Department: Room: 126 Gender: F Customs Verifier: LIZ : 1935 Requested by: Tita Lindquist Order Number: [id number] Reading MD: LACI JIMENEZ Intervals [place] Rate: 101 P: 999 SC: 0 QRS: 0 QRSD: 93 T: 33 QT: 335 QTc: 393 Interpretive Statements ATRIAL FIBRILLATION WITH RAPID VENTRICULAR RESPONSE Electronically Signed On 07-11-17 14:15:00 CDT by LACI JIMENEZ [email or web address]
[2017-07-11] MEDS ORDERED: MAGNESIUM SULF RIDER 2 GM in PREMIX 1 EACH IV PRN (08:19)
[2017-07-11] MEDS ORDERED: MAGNESIUM SULF RIDER 4 GM in PREMIX 1 EACH IV PRN (08:19)
--- NOTE | 2017-07-11 08:46 | XRay Report ---
XR chest 2V Date: 07/11/2017 4:00 AM History: Lead placement Comparison: 07/10/2017 Technique: PA and lateral chest Findings: The heart remains normal in size with stable left subclavian atrioventricular permanent pacemaker. No pneumothorax or acute parenchymal findings. Stable mediastinum with degenerative changes. Impression: No pneumothorax with stable left subclavian atrioventricular pacemaker. No acute cardiopulmonary pathology identified. PROCEDURE INTERPRETED AT [facility] DEPARTMENT OF RADIOLOGY Final Report Signed by: Dr. Kinjal Brewer
--- NOTE | 2017-07-11 08:46 | Family Practice Progress Note ---
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 fib 3 . Patient seen and examined in ICU, is hard of hearing, Is sitting up in the bed having breakfast Mentions that she is feeling better Nausea and vomiting improved, no diarrhea, generalized weakness improved No fever, chest pain, shortness of breath, No overnight events reported by the nurse. Exam (Progress Note) - Constitutional Vitals: Period Temp Pulse Resp BP Sys/Mcintyre Pulse Ox Last 24 Hr 97.6 F-98.1 F 72-116 12-27 98-160/53-103 91-100 Exam: Examination: General Examination: GENERAL APPEARANCE: alert and awake,, in no acute distress, elderly female patient, sitting up in the bed having breakfast HEENT: Decreased hearing EYES: extraocular movement intact (EOMI), conjunctiva clear, normal. NECK/THYROID: neck supple, full range of motion, no cervical lymphadenopathy, no thyromegaly. HEART: Irregularly irregular heart rate, no murmurs, rubs, gallops. LUNGS: clear to auscultation bilaterally, ABDOMEN: soft, nontender, nondistended, no organomegaly , bowel sounds present. EXTREMITIES: no edema. NEUROLOGIC: alert and oriented, cranial nerves 2-12 grossly intact, Results - Labs CBC & BMP: 07/11/17 04:09 07/11/17 04:09 Lab Results: I have reviewed the past 24 hour labs Assessment and Plan (1) Syncopal episodes Status: Acute Assessment and plan: resolved, transfer to monitored bed today, On permanent pacemaker secondary to cardiac dysrhythmia, Currently in A. fib, we will start Coreg 3.125 mg p.o. twice daily 1. pneumonia, start Azithromycin,day 2 today, , 2. DC IV fluids, on cardiac, low-sodium diet 3. Switch to p.o. Synthroid for hypothyroidism 4. Hyperglycemia,continue sliding scale, fingersticks glucose 5.HTN ,stable, continue current antihypertensives, 6. Magnesium low, will replace. Current Visit: Yes (2) Cardiac dysrhythmia, unspecified Status: Acute Current Visit: Yes (3) Nausea & vomiting Status: Acute Current Visit: Yes (4) Dehydration Status: Acute Current Visit: Yes (5) Hypothyroidism Status: Chronic Current Visit: Yes (6) Essential hypertension Status: Chronic Current Visit: Yes (7) Alzheimer's dementia Status: Chronic Current Visit: Yes (8) Depression Status: Chronic Current Visit: Yes Qualifiers: Depression Type: major depressive disorder (9) Generalized weakness Status: Acute Current Visit: Yes (10) Hyperglycemia Status: Chronic Current Visit: Yes (11) Pneumonia Status: Acute Current Visit: Yes Specialty Discharge - Follow Up or Referrals
--- NOTE | 2017-07-11 08:49 | Cardiology Progress Note ---
Assessment and Plan - Time spent with patient Time spent with patient: Less than 30 minutes (1) Paroxysmal atrial fibrillation Status: Chronic Assessment and plan: See plan of care listed below. Current Visit: Yes (2) Nausea & vomiting Status: Acute Assessment and plan: See plan of care listed below. Current Visit: Yes (3) Essential hypertension Status: Chronic Assessment and plan: See plan of care listed below. Current Visit: Yes (4) Hypothyroidism Status: Chronic Assessment and plan: See plan of care listed below. Current Visit: Yes (5) Alzheimer's dementia Status: Chronic Assessment and plan: See plan of care listed below. Current Visit: Yes (6) Cardiac dysrhythmia, unspecified Status: Acute Assessment and plan: See plan of care listed below. Current Visit: Yes Cardiology - PN: Subj Interval history: Slate Trimmer: Dr. Gonzalez PCP: Dr. Greenberg SUMMARY: Ms. Miranda is an 82 y/o WF, extremely hard of hearing, who presented to the hospital after a fall at home. She has a history of PAF, HTN, dementia, hypothyroidism. Apparently she was sitting outside when she just fell over. She was noted to have a sinus rhythm with first-degree AV block and HR of 90 in the ER along with significant pauses that were symptomatic. She is on metoprolol 25mg po daily at home for PAF. Her EKG showed a normal QRS duration but a very prolonged VT interval with a P-wave following the T-wave. She has a strip from admission which shows prolonged asystole. On 07/10/17, she underwent placement of a dual chamber pacemaker. JULY 11, 2017 UPDATE: Ms. Miranda is seen in the CCU, resting in bed in no acute distress. She has had no furthery dysrhythmias or pauses noted per review of her bakery manager. She is s/p dual chamber pacemaker placement for nonreversible symptomatic bradycardia due to third degree atrioventricular block. This morning, she is in atrial fibrillation with rates in the 100s-120s. Her blood pressure is 128/62. We'll give her a one time dose of 5mg IV Lopressor now and then resume her home dose of Metoprolol and increase it to BID with hold parameters. She has been seen by hospitalist this morning and is being transferred to a monitored bed. Pacemaker has been interrogated today and found to be functioning appropriately. Chest x-ray was reviewed and will be discussed with Dr. Vidales. ASSESSMENT/PLAN: 1. PAROXYSMAL ATRIAL FIBRILLATION - She is s/p dual chamber pacemaker placement. Her andrea blocking agents were held due to symptomatic bradycardia and prolonged asystole. She is now in atrial fibrillation with rates in the 100s -120s. 2. NAUSEA AND VOMITING - No further episodes. 3. ESSENTIAL HYPERTENSION - Currently well controlled. Will continue to monitor and adjust accordingly. 4. HYPOTHYROIDISM - She is on synthroid 50mcg IV daily, we have transitioned this back to her home dose of 100mcg PO daily. 5. ALZHEIMER'S DEMENTIA - Chronic. 6. CARDIAC DYSRHYTHMIA - Bradycardia - She has a strip from admission which shows prolonged asystole. On 07/10/17, she underwent placement of a dual chamber pacemaker. Exam (Progress Note) - Constitutional Vitals: Period Temp Pulse Resp BP Sys/Mcintyre Pulse Ox Last 24 Hr 97.6 F-98.1 F 72-116 12-27 98-160/53-103 91-100 Exam: General: Present: Appears Well, No Apparent Distress. Pleasant and cooperative. HEENT: Present: PERRL, Normocephaly, atraumatic. Mucus Membranes Moist. No jaundice noted. Conjunctiva moist and clear. Neck: Present: Supple Neck, Midline Trachea, No Masses, No tenderness Cardiac: Present: Regular Rate and Rhythm, No Murmur Lungs: Present: clear to auscultation bilaterally, no wheezes, rhonchi, rales. Neuro: Present: Awake, alert, and oriented x3. Moves all extremities well without hemiparesis or paralysis. Grossly Intact. Absent: Resting Tremor, Essential Tremor Abdomen: Present: Soft, Active Bowel Sounds, No Masses, Non-Tender, nondistended. No abdominal bruit or thrill noted. Skin: Present: Clear. Left chest wall dressing dry and intact. Mild ecchymosis near axilla. No redness, edema, or drainage noted. Absent: Rash, No skin breakdown. Back: Normal inspection, no vertebral tenderness. Musculoskeletal: Present: No Fluid Collection, No Pain, Normal Range of Motion Extremities: Present: Normal Gait, No Clubbing, No Cyanosis, Upper Extr. Pulses 2+, Lower Extr. Pulses 2+, No edema. Capillary refill less than 3 seconds. Result/EKG - Labs CBC & BMP: 07/11/17 04:09 07/11/17 04:09 Lab Results: I have reviewed the past 24 hour labs Labs: Laboratory Results - last 24 hr 07/10/17 07/10/17 07/10/17 11:04 16:29 20:32 WBC RBC Hgb Hct MCV MCH MCHC RDW Plt Count MPV Neut % (Auto) Lymph % (Auto) [place] % (Auto) Eos % (Auto) Baso % (Auto) Neut # (Auto) Lymph # (Auto) [place] # (Auto) Eos # (Auto) Baso # (Auto) Immature Gran % Nucleated RBC % Immature Gran # Nucleated RBCs # Immature Plt Fraction Sodium Potassium Chloride Carbon Dioxide Anion Gap BUN Creatinine GFR Calculation BUN/Creatinine Ratio Glucose POC Glucose 79 100 65 L Calculated Osmolality Calcium Magnesium 07/11/17 07/11/17 07/11/17 04:09 04:09 07:13 WBC 7.8 RBC 4.05 Hgb 12.1 Hct 36.8 MCV 90.9 MCH 30 MCHC 32.9 RDW 13.5 Plt Count 127 L MPV 11.8 Neut % (Auto) 67.0 Lymph % (Auto) 20.2 L [place] % (Auto) 9.0 Eos % (Auto) 3.0 Baso % (Auto) 0.5 Neut # (Auto) 5.2 Lymph # (Auto) 1.6 [place] # (Auto) 0.7 Eos # (Auto) 0.2 Baso # (Auto) 0.0 Immature Gran % 0.3 Nucleated RBC % 0.0 Immature Gran # 0.02 Nucleated RBCs # 0.00 Immature Plt Fraction 0.0 Sodium 142 Potassium 3.9 Chloride 108 H Carbon Dioxide 27 Anion Gap 10.9 BUN 12 Creatinine 0.80 GFR Calculation 70 BUN/Creatinine Ratio 15.00 Glucose 83 POC Glucose 84 Calculated Osmolality 281.1 Calcium 8.1 L Magnesium 1.6 L - EKG EKG results: interpreted by me EKG shows: atrial fibrillation Specialty Discharge - Follow Up or Referrals Follow up with: Nixon Gonzalez MD [Physician] - 1 Week (Follow up with Dr. Gonzalez in 1 week for pacemaker site check. )
[2017-07-11] MEDS ORDERED: METOPROLOL TARTRATE 5 MG/5 ML VIAL IV ONE (09:05)
[2017-07-11] MEDS: INSULIN REGULAR 100 UNIT/ML SUBCUT SCH ×4 (09:27→20:38)
[2017-07-11] MEDS: METOPROLOL TARTRATE 25 MG TABLET PO SCH ×2 (09:38→20:07)
[2017-07-11] MEDS: PANTOPRAZOLE 40 MG TABLET PO SCH (09:38)
[2017-07-11] MEDS: ASPIRIN EC 81 MG TABLET PO SCH (09:38)
[2017-07-11] MEDS: DOCUSATE SODIUM 100 MG CAPSULE PO SCH ×2 (09:38→20:07)
[2017-07-11] MEDS: AZITHROMYCIN INJ 500 MG in SODIUM CHLORIDE 0.9% 250 ML IV SCH (11:41)
[2017-07-11] MEDS: CITALOPRAM 40 MG TABLET PO SCH (15:18)
[2017-07-11] MEDS: MONTELUKAST 10 MG TABLET PO SCH (15:18)
[2017-07-11] MEDS: ENOXAPARIN 40 MG/0.4 ML SYRINGE SUBCUT SCH (17:00)
[2017-07-11] MEDS: MEMANTINE 10 MG TABLET PO SCH (20:07)
[2017-07-12] MEDS ORDERED: LEVOTHYROXINE 100 MCG TABLET PO SCH (07:00)
[2017-07-12 08:24] LABS: Basophils # 0.1 10*3/uL (0.0-0.2); Basophils % 0.7 % (0.0-0.8); Eosinophils # 0.3 10*3/uL (0.0-0.87); Eosinophils % 3.7 % (0.00-10.9); Hemoglobin 12.1 GM/DL (12.0-16.0); Immature Granulocytes % 0.3 %; Immature Granulocytes Absolute 0.02 #; Lymphocytes # 1.9 10*3/uL (1.4-4.0); Lymphocytes % 28.3 % (21.3-54.2); Mean Corpuscular HGB Conc 33.6 GM/DL (32-36); Mean Corpuscular Hemoglobin 30 PG (27-34); Monocytes # 0.8 10*3/uL (0.11-0.8); Monocytes % 11.2 % (1.7-12.7); Neutrophils # 3.7 10*3/uL (1.4-7.4); Neutrophils % 55.8 % (38.7-73.9); Platelet Count 139 T/CUMM (130-400); Red Cell Distribution Width 13.4 % (9.3-17.3); White Blood Count 6.7 T/CUMM (4-12)
[2017-07-12 08:56] LABS: Calcium 8.7 MG/DL (8.5-10.1); Osmolality,Calculated 279.3 MOS/KG (273-304); Potassium 3.8 MMOL/L (3.5-5.1)
[2017-07-12] MEDS ORDERED: DONEPEZIL 10 MG TABLET PO SCH (09:00)
[2017-07-12] MEDS ORDERED: MELOXICAM 7.5 MG TABLET PO SCH (09:00)
[2017-07-12] MEDS: INSULIN REGULAR 100 UNIT/ML SUBCUT SCH ×2 (09:02→12:00)
[2017-07-12] MEDS: DOCUSATE SODIUM 100 MG CAPSULE PO SCH (09:07)
[2017-07-12] MEDS: MONTELUKAST 10 MG TABLET PO SCH (09:07)
[2017-07-12] MEDS: PANTOPRAZOLE 40 MG TABLET PO SCH (09:07)
[2017-07-12] MEDS: METOPROLOL TARTRATE 25 MG TABLET PO SCH (09:07)
[2017-07-12] MEDS: CITALOPRAM 40 MG TABLET PO SCH (09:07)
[2017-07-12] MEDS: MEMANTINE 10 MG TABLET PO SCH (09:07)
[2017-07-12] MEDS: ASPIRIN EC 81 MG TABLET PO SCH (09:07)
--- NOTE | 2017-07-12 09:33 | Discharge Summary ---
Hospital Course - Hospital Course Hospital Course: PCP: , Consult done to Staple Fiber Washer, Patient admitted for multiple syncopal episodes, cardiac dysrhythmia, unspecified, generalized weakness, IV VD Has h/o hypothyroidism, hypertension, depression, Alzheimer's dementia, GERD, hyperglycemia on diet and lifestyle changes, had history of A. fib 3 years ago. Patient extremely hard of hearing, who presented to the hospital after a fall at home, frequent near syncope spells in past week, she is on metoprolol 25mg po daily at home for PAF. Was on digoxin in the past, but was discontinued. in the ER she was noted to have cardiac dysarythmia ranging from asystole/ pauses,to irregular heart rate. In the ER a temporary transcutaneous pacer placed. geoscience professor Dr. Zafar was consulted, was admitted to CCU, geoscience professor recommendations were followed On 07/10/17, she underwent placement of a dual chamber pacemaker. and pacemaker functioning was rechecked couple of times before discharge. Patient also had nausea, vomiting, dehydration, was treated with IV fluids, diet was advanced as tolerated, which resolved her IV VD during the hospital stay. Was transferred to monitored bed, once stable. On chest x-ray pneumonia was noted, azithromycin was added, and was discharged with the azithromycin prescription for total of 5 days. Her electrolytes were replaced as needed during the hospital stay. Daily labs were followed, Her diabetes and high blood pressure were stable during the hospital stay. On the day of discharge, patient had a spell of near-syncope while she was in the bathroom, felt nauseated ,no vomiting ,no headaches, no fall., EKG showed A. fib, geoscience professor protection analyst, was contacted, pacemaker was interrogated again. Patient was cleared for discharge cardiology point of view, Discussed with patient/family present at bedside, about watching for worsening of symptoms, advised change body position slow from lying to sitting to standing to walking., take meds compliantly, keep PCp! geoscience professor appts .RT ER if symptoms worsen, Diagnosis - Discharge Diagnosis (1) Syncopal episodes Status: Acute (2) Cardiac dysrhythmia, unspecified Status: Acute (3) Nausea & vomiting Status: Resolved (4) Dehydration Status: Resolved (5) Hypothyroidism Status: Chronic (6) Essential hypertension Status: Chronic (7) Alzheimer's dementia Status: Chronic (8) Depression Status: Chronic (9) Generalized weakness Status: Resolved (10) Hyperglycemia Status: Chronic (11) Pneumonia Status: Acute (12) Decreased hearing of both ears Status: Chronic Specialty Discharge - Follow Up or Referrals Follow up with: Sam Greenberg MD [Physician] - (Follow up with Dr. Greenberg on July 26 @ 1015. ) Nixon Gonzalez MD [Physician] - 1 Week (Follow up with Dr. Gonzalez on July 20 @ 8:20 AM for pacemaker site check. ) Discharge Plan - Discharge Data Disposition: Disch To Home/Self Care Condition at Discharge: Stable Discharge Diet: heart healthy, low salt diet Activity: resume usual activities as tolerated - Discharge Medications New Azithromycin Tab [Zithromax Tab] 500 mg PO DAILY #3 tablet Ondansetron Tab [Zofran Tab] 4 mg PO Q6HR #30 tablet Continue Trazodone HCl 100 mg PO BEDTIME Pantoprazole Tab [Protonix Tab] 40 mg PO DAILY Memantine HCl/Donepezil HCl [Namzaric 28-10 mg] 1 capsule PO QPM Meloxicam [Mobic] 7.5 mg PO DAILY Aspirin EC Tab 81 mg PO DAILY Levothyroxine Tab [Synthroid Tab] 100 mcg PO DAILY@0700 Citalopram [CeleXA] 40 mg PO DAILY buPROPion [Wellbutrin] 300 mg PO DAILY Montelukast Tab [Singulair Tab] 10 mg PO DAILY Changed Metoprolol Tartrate Tab [Lopressor Tab] 25 mg PO BID #60 tablet - Follow Up or Referral Follow Up: Sam Greenberg MD [Physician] - (Follow up with Dr. Greenberg on July 26 @ 1015. ) Nixon Gonzalez MD [Physician] - 1 Week (Follow up with Dr. Gonzalez on July 20 @ 8:20 AM for pacemaker site check. ) - Forms/Instructions Instructions: Metoprolol (By mouth), Azithromycin (By mouth), Pacemaker (GEN), Heart Healthy Diet (GEN), Syncope (DC), Heart Block (GEN), Acute Nausea and Vomiting (DC) Exam - Constitutional Vitals: Period Temp Pulse Resp BP Sys/Mcintyre Pulse Ox Last 24 Hr 97.6 F-98.9 F 69-91 10-20 104-133/65-87 96-99 Exam: Examination: General Examination: GENERAL APPEARANCE: alert and awake,, in no acute distress, elderly female patient, sitting up in the bed HEENT: Decreased hearing EYES: extraocular movement intact (EOMI), conjunctiva clear, normal. NECK/THYROID: neck supple, full range of motion, no cervical lymphadenopathy, no thyromegaly. HEART: Irregularly irregular heart rate, no murmurs, rubs, gallops. LUNGS: clear to auscultation bilaterally, ABDOMEN: soft, nontender, nondistended, no organomegaly , bowel sounds present. EXTREMITIES: no edema. NEUROLOGIC: alert and oriented, cranial nerves 2-12 grossly intact, Discharge Results Procedures and tests throughout hospitalization: Pending Orders 07/09/17 16:42 Troponin,CKMB & Ck Total Timed 07/10/17 09:15 Blood Culture Stat Labs on day of discharge: Labs from last 24 hours 07/12/17 07/12/17 07/12/17 07:58 07:58 07:14 WBC 6.7 RBC 4.00 Hgb 12.1 Hct 36.0 MCV 90.0 MCH 30 MCHC 33.6 RDW 13.4 Plt Count 139 MPV 12.0 Neut % (Auto) 55.8 Lymph % (Auto) 28.3 [place] % (Auto) 11.2 Eos % (Auto) 3.7 Baso % (Auto) 0.7 Neut # (Auto) 3.7 Lymph # (Auto) 1.9 [place] # (Auto) 0.8 Eos # (Auto) 0.3 Baso # (Auto) 0.1 Immature Gran % 0.3 Nucleated RBC % 0.0 Immature Gran # 0.02 Nucleated RBCs # 0.00 Immature Plt Fraction 0.0 Sodium 141 Potassium 3.8 Chloride 104 Carbon Dioxide 35 H Anion Gap 5.8 BUN 12 Creatinine 0.80 GFR Calculation 70 BUN/Creatinine Ratio 15.00 Glucose 86 POC Glucose 111 H Calculated Osmolality 279.3 Calcium 8.7 Magnesium 2.0 07/11/17 07/11/17 07/11/17 20:24 16:49 11:31 WBC RBC Hgb Hct MCV MCH MCHC RDW Plt Count MPV Neut % (Auto) Lymph % (Auto) [place] % (Auto) Eos % (Auto) Baso % (Auto) Neut # (Auto) Lymph # (Auto) [place] # (Auto) Eos # (Auto) Baso # (Auto) Immature Gran % Nucleated RBC % Immature Gran # Nucleated RBCs # Immature Plt Fraction Sodium Potassium Chloride Carbon Dioxide Anion Gap BUN Creatinine GFR Calculation BUN/Creatinine Ratio Glucose POC Glucose 150 H 87 127 H Calculated Osmolality Calcium Magnesium Preliminary micro results at discharge 07/10/17 09:15 Blood Culture - Preliminary Blood No growth at 1 day 07/10/17 09:15 Blood Culture - Preliminary Blood No growth at 1 day - Impressions Blood culture from 07/10/2017, no growth for 3 days 2 - Imaging and Cardiology Cardiology Procedure: report reviewed by me Procedure: Chest x-ray: report reviewed by ks DS: Provider Date of admission: 07/09/17 16:38 Primary care physician: . No PCP Attending physician on admission: Sam Greenberg MD Consults: 07/09/17 16:38 Consult to Case Mgmt/Social Srvs [CONS] Routine Reason for Case Mgmt/Social Srvs: Discharge Planning 07/09/17 17:09 Consult to Cardiac Rehabilitation [CONS] Routine Reason for Cardiac Rehabilitation: Other 07/10/17 11:37 Consult to Wound Care - [place] [CONS] Routine Reason for Wound Care: Wound Care Management Discharging clinician: Esperanza Miguel MD
[2017-07-12] MEDS ORDERED: AZITHROMYCIN 250 MG TABLET PO ONE ×2 (10:30→15:41)
[2017-07-12] MEDS: AZITHROMYCIN INJ 500 MG in SODIUM CHLORIDE 0.9% 250 ML IV SCH (12:02)
[2017-07-12] MEDS ORDERED: ONDANSETRON ODT 4 MG TABLET PO PRN (12:41)
--- NOTE | 2017-07-12 12:41 | EKG Report ---
Stationary ECG Study [facility] Test Date: 07/12/2017 12:39:01 PM Pat Name: NIKOLAI CORRIGAN Department: Room: 520 Gender: F Ear Nose Throat Physician: MARILYN : 1935 Requested by: Tita Lindquist Order Number: [id number] Reading MD: LACI JIMENEZ Intervals [place] Rate: 82 P: 999 OK: 0 QRS: 42 QRSD: 96 T: 52 QT: 385 QTc: 424 Interpretive Statements ATRIAL FIBRILLATION Electronically Signed On 07-12-17 17:00:41 CDT by LACI JIMENEZ [email or web address]
--- NOTE | 2017-07-12 14:15 | Event Note ---
Got a call from the nurse at around 13.05 , mentioned the following event happened approx 30mins ago, pt got up and went to bathroom , and in bathroom she felt dizzy and nauseated , no vomiting , no headaches , no fall, as per nurse pt mentioned this is how she felt while having syncopial episodes before getting admitted, pt was helped back to the bed, ice puller environmental engineering aide was informed, pacemaker was rechecked again, is working ok, EKG was done, ,A.fib noted, pt does have h/o A.fib, aftr recieving dm , pt felt better , pt was seen and examined , family present at bedside, General exam: pt is in a chair , no acute distress, HEENT, atraumatic, normocephalic, decreased hearing, PERRLA CVS, S1S2 present , rate , rhythm regular at the time of exam, , MI of 85/min, Resp : CTABL, Extremities : No edema, 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 ice puller appts made, discussed with caregivers,pt to change body position slow, take meds compliantly , RT ER if symptoms worsen,
[2017-07-12 16:16] VITALS: BP 117/63
--- NOTE | 2017-07-12 16:27 | Cardiology Progress Note ---
Cardiology - PN: Subj Interval history: Cardiology note Status post Medtronic dual-chamber pacemaker Incision looks good No temperature Nausea resolved Pacemaker interrogation demonstrates normal pacing and sensing Plan Agree with discharge Office visit with Dr. Gonzalez wound check 1 week scheduled Exam (Progress Note) - Constitutional Vitals: Period Temp Pulse Resp BP Sys/[place] Pulse Ox Last 24 Hr 97.2 F-98.9 F 49-91 18-20 113-150/63-87 96-100 Result/EKG - Labs CBC & BMP: 07/12/17 07:58 07/12/17 07:58 Labs: Laboratory Results - last 24 hr 07/11/17 07/11/17 07/12/17 16:49 20:24 07:14 WBC RBC Hgb Hct MCV MCH MCHC RDW Plt Count MPV Neut % (Auto) Lymph % (Auto) [place] % (Auto) Eos % (Auto) Baso % (Auto) Neut # (Auto) Lymph # (Auto) [place] # (Auto) Eos # (Auto) Baso # (Auto) Immature Gran % Nucleated RBC % Immature Gran # Nucleated RBCs # Immature Plt Fraction Sodium Potassium Chloride Carbon Dioxide Anion Gap BUN Creatinine GFR Calculation BUN/Creatinine Ratio Glucose POC Glucose 87 150 H 111 H Calculated Osmolality Calcium Magnesium 07/12/17 07/12/17 07/12/17 07:58 07:58 11:19 WBC 6.7 RBC 4.00 Hgb 12.1 Hct 36.0 MCV 90.0 MCH 30 MCHC 33.6 RDW 13.4 Plt Count 139 MPV 12.0 Neut % (Auto) 55.8 Lymph % (Auto) 28.3 [place] % (Auto) 11.2 Eos % (Auto) 3.7 Baso % (Auto) 0.7 Neut # (Auto) 3.7 Lymph # (Auto) 1.9 [place] # (Auto) 0.8 Eos # (Auto) 0.3 Baso # (Auto) 0.1 Immature Gran % 0.3 Nucleated RBC % 0.0 Immature Gran # 0.02 Nucleated RBCs # 0.00 Immature Plt Fraction 0.0 Sodium 141 Potassium 3.8 Chloride 104 Carbon Dioxide 35 H Anion Gap 5.8 BUN 12 Creatinine 0.80 GFR Calculation 70 BUN/Creatinine Ratio 15.00 Glucose 86 POC Glucose 104 Calculated Osmolality 279.3 Calcium 8.7 Magnesium 2.0 08/30/17 16:01 WBC RBC Hgb Hct MCV MCH MCHC RDW Plt Count MPV Neut % (Auto) Lymph % (Auto) [place] % (Auto) Eos % (Auto) Baso % (Auto) Neut # (Auto) Lymph # (Auto) [place] # (Auto) Eos # (Auto) Baso # (Auto) Immature Gran % Nucleated RBC % Immature Gran # Nucleated RBCs # Immature Plt Fraction Sodium Potassium Chloride Carbon Dioxide Anion Gap BUN Creatinine GFR Calculation BUN/Creatinine Ratio Glucose POC Glucose 139 H Calculated Osmolality Calcium Magnesium Specialty Discharge - Follow Up or Referrals Follow up with: Sam Greenberg MD [Physician] - (Follow up with Dr. Greenberg on July 26 @ 1015. ) Nixon Gonzalez MD [Physician] - 1 Week (Follow up with Dr. Gonzalez on July 20 @ 8:20 AM for pacemaker site check. )
== END 2017-07-12 16:00 | disposition home health service (06) | DRG 242 ==
LOC: EDUNIT# → EDBD → N.ED 14:40 → N.EDINP 16:38 → N.CC 17:23 → N.5E 07-11 12:29
PROVIDERS: ADMIT Internal Medicine; ATTEND Internal Medicine

== ENCOUNTER 2017-10-03 10:10 | Inpatient (IN) ==
[2017-10-03] MEDS ORDERED: ALBUTEROL 2.5 MG/3 ML NEB RESP TX STA (11:20)
[2017-10-03] MEDS ORDERED: GENTAMICIN INJ 120 MG in SODIUM CHLORIDE 0.9% 100 ML IV STA (11:20)
[2017-10-03] MEDS ORDERED: methylPREDNISolone SOD SUC 125 MG/2 ML VIAL IV STA (11:20)
[2017-10-03] MEDS ORDERED: CIPROFLOXACIN/DEXAMETHASONE OTIC SUSP 7.5 ML BOTTLE LEFT EAR STA (11:28)
[2017-10-03 11:40] LABS: Basophils # 0.1 10*3/uL (0.0-0.2); Basophils % 0.7 % (0.0-0.8); Eosinophils # 0.2 10*3/uL (0.0-0.87); Eosinophils % 2.5 % (0.00-10.9); Hematocrit 34.6 VOL% (35.7-47.0); Hemoglobin 11.2 GM/DL (12.0-16.0); Immature Granulocytes % 0.7 %; Immature Granulocytes Absolute 0.07 #; Lymphocytes # 1.1 10*3/uL (1.4-4.0); Lymphocytes % 11.6 % (21.3-54.2); Mean Corpuscular HGB Conc 32.4 GM/DL (32-36); Mean Corpuscular Hemoglobin 31 PG (27-34); Mean Corpuscular Volume 95.8 FL (87-102); Mean Platelet Volume 11.6 FL (9.6-12.0); Monocytes # 0.8 10*3/uL (0.11-0.8); Monocytes % 8.8 % (1.7-12.7); Neutrophils # 7.2 10*3/uL (1.4-7.4); Neutrophils % 75.7 % (38.7-73.9); Platelet Count 236 T/CUMM (130-400); Red Blood Count 3.61 MC/CUMM (3.8-5.5); Red Cell Distribution Width 15.9 % (9.3-17.3); White Blood Count 9.5 T/CUMM (4-12)
[2017-10-03] MEDS ORDERED: GENTAMICIN 80 MG/2 ML VIAL ONE (12:06)
[2017-10-03] MEDS ORDERED: CIPROFLOXACIN/DEXAMETHASONE OTIC SUSP 7.5 ML BOTTLE ONE (12:06)
[2017-10-03] MEDS ORDERED: methylPREDNISolone SOD SUC 125 MG/2 ML VIAL ONE (12:07)
[2017-10-03 12:32] LABS: Alanine Aminotransferase 27 U/L (13-56); Albumin 3.8 G/DL (3.4-5.0); Alkaline Phosphatase 128 U/L (45-117); Aspartate Amino Transferase 21 U/L (0-37); Blood Urea Nitrogen 17 MG/DL (7-18); Glucose 90 MG/DL (74-106); Osmolality,Calculated 276.7 MOS/KG (273-304); Potassium 4.5 MMOL/L (3.5-5.1); Sodium 138 MMOL/L (136-145); Total Protein 7.1 G/DL (6.4-8.3); Troponin I Only < 0.015 NG/ML (0.00-0.045)
[2017-10-03 13:04] LABS: Apearance,Urine Slightly Hazy (Clear); Bilirubin,Urine Negative (Negative); Blood, Urine Negative (Negative); Glucose,Urine (UA) Negative (Negative); Ketones,Urine Negative (Negative); Mucus,Urine Occasional /LPF (Occasional); Nitrite,Urine Negative (Negative); Protein,Urine 30 MG/DL; RBC,Urine 1 /HPF (0-4); Urine Color Yellow (Yellow); Urine Specific Gravity 1.017 (1.001-1.035); Urine Urobilinogen < 2.0 EU/DL (0.2-1.0); WBC,Urine 1 /HPF (0-6)
[2017-10-03] MEDS ORDERED: FUROSEMIDE 40 MG/4 ML VIAL IV STA (13:04)
[2017-10-03] MEDS ORDERED: FUROSEMIDE 40 MG/4 ML VIAL ONE (13:39)
[2017-10-03] MEDS ORDERED: DEXTROSE 50% 25 GM/50 ML VIAL IV PRN (14:47)
[2017-10-03] MEDS ORDERED: GLUCAGON 1 MG VIAL IM PRN (14:47)
[2017-10-03] MEDS ORDERED: ONDANSETRON 4 MG/2 ML VIAL IV PRN (14:47)
[2017-10-03] MEDS ORDERED: ACETAMINOPHEN 325 MG TABLET PO PRN (15:00)
[2017-10-03] MEDS ORDERED: traMADol 50 MG TABLET PO PRN (16:28)
[2017-10-03] MEDS: ONDANSETRON 4 MG TABLET PO SCH ×2 (19:02→23:02)
[2017-10-03] MEDS: DOCUSATE SODIUM 100 MG CAPSULE PO SCH (20:44)
[2017-10-03] MEDS: DONEPEZIL 10 MG TABLET PO SCH (20:44)
[2017-10-03] MEDS: traZODone 50 MG TABLET PO SCH (20:45)
[2017-10-03] MEDS: METOPROLOL TARTRATE 25 MG TABLET PO SCH (20:45)
[2017-10-03] MEDS: CIPROFLOXACIN/DEXAMETHASONE OTIC SUSP 7.5 ML BOTTLE LEFT EAR SCH ×2 (20:45→23:03)
[2017-10-04 05:58] LABS: Basophils % 0.3 % (0.0-0.8); Hematocrit 32.9 VOL% (35.7-47.0); Hemoglobin 10.6 GM/DL (12.0-16.0); Immature Granulocytes % 0.9 %; Immature Granulocytes Absolute 0.06 #; Lymphocytes # 0.8 10*3/uL (1.4-4.0); Lymphocytes % 12.2 % (21.3-54.2); Mean Corpuscular HGB Conc 32.2 GM/DL (32-36); Mean Corpuscular Hemoglobin 31 PG (27-34); Mean Corpuscular Volume 95.6 FL (87-102); Mean Platelet Volume 11.7 FL (9.6-12.0); Monocytes # 0.6 10*3/uL (0.11-0.8); Monocytes % 9.5 % (1.7-12.7); Neutrophils # 5.1 10*3/uL (1.4-7.4); Neutrophils % 77.1 % (38.7-73.9); Platelet Count 233 T/CUMM (130-400); Red Blood Count 3.44 MC/CUMM (3.8-5.5); Red Cell Distribution Width 15.6 % (9.3-17.3); White Blood Count 6.6 T/CUMM (4-12)
[2017-10-04] MEDS: LEVOTHYROXINE 100 MCG TABLET PO SCH (06:13)
[2017-10-04] MEDS: ONDANSETRON 4 MG TABLET PO SCH ×4 (06:13→23:52)
[2017-10-04 06:41] LABS: Calcium 8.6 MG/DL (8.5-10.1); Osmolality,Calculated 282.4 MOS/KG (273-304); Potassium 4.2 MMOL/L (3.5-5.1)
[2017-10-04] MEDS ORDERED: PANTOPRAZOLE 40 MG TABLET PO SCH (09:00)
[2017-10-04] MEDS ORDERED: [UNRECOGNIZED DRUG - REMARK] BOTH NARES SCH (09:00)
[2017-10-04] MEDS: FUROSEMIDE 40 MG TABLET PO SCH (10:01)
[2017-10-04] MEDS: MULTIVITAMIN (CENTRUM) TABLET PO SCH (10:02)
[2017-10-04] MEDS: CITALOPRAM 40 MG TABLET PO SCH (10:02)
[2017-10-04] MEDS: PANTOPRAZOLE 40 MG TABLET PO SCH (10:03)
[2017-10-04] MEDS: DOCUSATE SODIUM 100 MG CAPSULE PO SCH ×2 (10:03→21:05)
[2017-10-04] MEDS: MONTELUKAST 10 MG TABLET PO SCH (10:03)
[2017-10-04] MEDS: ASPIRIN EC 81 MG TABLET PO SCH (10:03)
[2017-10-04] MEDS: CIPROFLOXACIN/DEXAMETHASONE OTIC SUSP 7.5 ML BOTTLE LEFT EAR SCH ×3 (10:08→21:06)
[2017-10-04] MEDS: METOPROLOL TARTRATE 25 MG TABLET PO SCH ×2 (14:46→21:05)
[2017-10-04] MEDS: GENTAMICIN INJ 120 MG in PREMIX 1 EACH IV SCH (14:46)
[2017-10-04] MEDS: traZODone 50 MG TABLET PO SCH (21:05)
[2017-10-04] MEDS: DONEPEZIL 10 MG TABLET PO SCH (21:05)
[2017-10-05 05:05] LABS: Osmolality,Calculated 287.1 MOS/KG (273-304); Potassium 4.3 MMOL/L (3.5-5.1)
[2017-10-05] MEDS: ONDANSETRON 4 MG TABLET PO SCH ×4 (05:25→23:40)
[2017-10-05] MEDS: LEVOTHYROXINE 100 MCG TABLET PO SCH (06:49)
[2017-10-05] MEDS: MONTELUKAST 10 MG TABLET PO SCH (08:19)
[2017-10-05] MEDS: CITALOPRAM 40 MG TABLET PO SCH (08:19)
[2017-10-05] MEDS: CIPROFLOXACIN/DEXAMETHASONE OTIC SUSP 7.5 ML BOTTLE LEFT EAR SCH ×3 (08:20→21:26)
[2017-10-05] MEDS: ASPIRIN EC 81 MG TABLET PO SCH (08:20)
[2017-10-05] MEDS: METOPROLOL TARTRATE 25 MG TABLET PO SCH ×2 (08:20→21:26)
[2017-10-05] MEDS: FUROSEMIDE 40 MG TABLET PO SCH (08:20)
[2017-10-05] MEDS: PANTOPRAZOLE 40 MG TABLET PO SCH (08:20)
[2017-10-05] MEDS: DOCUSATE SODIUM 100 MG CAPSULE PO SCH ×2 (08:20→21:26)
[2017-10-05] MEDS: MULTIVITAMIN (CENTRUM) TABLET PO SCH (08:20)
[2017-10-05] MEDS: GENTAMICIN INJ 120 MG in PREMIX 1 EACH IV SCH (13:14)
[2017-10-05] MEDS: traZODone 50 MG TABLET PO SCH (21:26)
[2017-10-05] MEDS: DONEPEZIL 10 MG TABLET PO SCH (21:26)
[2017-10-06] MEDS: ONDANSETRON 4 MG TABLET PO SCH (06:25)
[2017-10-06] MEDS: LEVOTHYROXINE 100 MCG TABLET PO SCH (06:34)
[2017-10-06 07:13] LABS: Calcium 8.5 MG/DL (8.5-10.1); Osmolality,Calculated 284.3 MOS/KG (273-304); Potassium 4.2 MMOL/L (3.5-5.1)
[2017-10-06] MEDS: METOPROLOL TARTRATE 25 MG TABLET PO SCH (08:23)
[2017-10-06] MEDS: PANTOPRAZOLE 40 MG TABLET PO SCH (08:23)
[2017-10-06] MEDS: FUROSEMIDE 40 MG TABLET PO SCH (08:23)
[2017-10-06] MEDS: MONTELUKAST 10 MG TABLET PO SCH (08:23)
[2017-10-06] MEDS: DOCUSATE SODIUM 100 MG CAPSULE PO SCH (08:23)
[2017-10-06] MEDS: CITALOPRAM 40 MG TABLET PO SCH (08:23)
[2017-10-06] MEDS: MULTIVITAMIN (CENTRUM) TABLET PO SCH (08:23)
[2017-10-06] MEDS: CIPROFLOXACIN/DEXAMETHASONE OTIC SUSP 7.5 ML BOTTLE LEFT EAR SCH (08:24)
[2017-10-06] MEDS: ASPIRIN EC 81 MG TABLET PO SCH (08:24)
[2017-10-06 09:07] VITALS: BP 121/57
== END 2017-10-06 09:50 | disposition swing bed (61) | DRG 293 ==
LOC: N.ED 10:10 → N.EDINP 13:11 → SUPCPDRO 13:11 → N.EDINP 14:40 → N.4E 14:42
PROVIDERS: ADMIT Internal Medicine; ATTEND Internal Medicine

== ENCOUNTER 2018-01-01 12:32 | Inpatient (IN) ==
[2018-01-01] MEDS ORDERED: SODIUM CHLORIDE 0.9% 500 ML IV STA (13:01)
[2018-01-01] MEDS ORDERED: ASPIRIN 325 MG TABLET PO STA (13:01)
[2018-01-01] MEDS ORDERED: ONDANSETRON 4 MG/2 ML VIAL IV STA (13:01)
[2018-01-01] MEDS ORDERED: ONDANSETRON 4 MG/2 ML VIAL ONE (13:09)
[2018-01-01] MEDS ORDERED: ASPIRIN 325 MG TABLET ONE (13:10)
[2018-01-01] MEDS ORDERED: FUROSEMIDE 20 MG/2 ML VIAL IV STA (13:38)
[2018-01-01 14:13] LABS: Basophils # 0.1 10*3/uL (0.0-0.2); Basophils % 0.4 % (0.0-0.8); Eosinophils # 0.1 10*3/uL (0.0-0.87); Eosinophils % 0.8 % (0.00-10.9); Hematocrit 37.3 VOL% (35.7-47.0); Hemoglobin 12.3 GM/DL (12.0-16.0); Immature Granulocytes % 0.5 %; Immature Granulocytes Absolute 0.06 #; Lymphocytes # 1.5 10*3/uL (1.4-4.0); Lymphocytes % 12.7 % (21.3-54.2); Mean Corpuscular Hemoglobin 31 PG (27-34); Mean Corpuscular Volume 92.6 FL (87-102); Mean Platelet Volume 12.7 FL (9.6-12.0); Monocytes # 1.1 10*3/uL (0.11-0.8); Monocytes % 8.8 % (1.7-12.7); Neutrophils # 9.1 10*3/uL (1.4-7.4); Neutrophils % 76.8 % (38.7-73.9); Platelet Count 204 T/CUMM (130-400); Red Blood Count 4.03 MC/CUMM (3.8-5.5); Red Cell Distribution Width 17.3 % (9.3-17.3); White Blood Count 11.9 T/CUMM (4-12)
[2018-01-01] MEDS ORDERED: FUROSEMIDE 20 MG/2 ML VIAL ONE (14:20)
[2018-01-01 14:36] LABS: Albumin 3.4 G/DL (3.4-5.0); Bilirubin,Total 1.7 MG/DL (0.2-1.0); Calcium 8.4 MG/DL (8.5-10.1); Osmolality,Calculated 287.8 MOS/KG (273-304); Potassium 4.1 MMOL/L (3.5-5.1); Total Protein 7.2 G/DL (6.4-8.3)
[2018-01-01 14:37] LABS: Lactic Acid 2.2 MMOL/L (0.4-2.0)
[2018-01-01 14:55] LABS: Apearance,Urine Slightly Hazy (Clear); Bacteria,Urine Occasional /HPF (Few); Bilirubin,Urine Negative (Negative); Blood, Urine Negative (Negative); Glucose,Urine (UA) Negative (Negative); Hyaline Casts,Urine 5 /LPF (0-3); Ketones,Urine Negative (Negative); Mucus,Urine Occasional /LPF (Occasional); Nitrite,Urine Negative (Negative); Protein,Urine 30 MG/DL; RBC,Urine <1 /HPF (0-4); Squamous Epithelial Cell,Urine Occasional /HPF (0-10); Urine Color Yellow (Yellow); Urine Specific Gravity 1.013 (1.001-1.035); WBC,Urine 1 /HPF (0-6)
[2018-01-01] MEDS ORDERED: FUROSEMIDE 40 MG/4 ML VIAL IV STA (15:27)
[2018-01-01] MEDS ORDERED: VANCOMYCIN INJ 1,000 MG in SODIUM CHLORIDE 0.9% 250 ML IV SCH (15:30)
[2018-01-01] MEDS ORDERED: FUROSEMIDE 40 MG/4 ML VIAL ONE (15:57)
[2018-01-01] MEDS ORDERED: LEVOFLOXACIN INJ 500 MG in PREMIX 1 EACH IV ONE (18:00)
[2018-01-01] MEDS: SODIUM CHLORIDE 0.9% 1,000 ML IV SCH (18:05)
[2018-01-01] MEDS: PHENYLEPHRINE DRIP 40 MG/250 ML PREMIX IV SCH (18:05)
[2018-01-01 18:07] LABS: INR 1.1; PT Patient Result 11.2 SECS; Partial Thromboplastin Time 26.4 SECS (0-40)
[2018-01-01] MEDS ORDERED: GLUCAGON 1 MG VIAL IM PRN (18:10)
[2018-01-01] MEDS ORDERED: LACTATED RINGERS 1,000 ML IV SCH (18:10)
[2018-01-01] MEDS ORDERED: ALBUTEROL 2.5 MG/3 ML NEB RESP TX PRN (18:10)
[2018-01-01] MEDS ORDERED: ONDANSETRON 4 MG/2 ML VIAL IV PRN (18:10)
[2018-01-01] MEDS ORDERED: ONDANSETRON 4 MG TABLET PO PRN (18:10)
[2018-01-01] MEDS ORDERED: DEXTROSE 50% 25 GM/50 ML VIAL IV PRN (18:10)
[2018-01-01] MEDS ORDERED: ACETAMINOPHEN 325 MG TABLET PO PRN ×2 (18:10)
[2018-01-01] MEDS: INSULIN REGULAR 100 UNIT/ML SUBCUT SCH ×2 (18:29→22:39)
[2018-01-01] MEDS ORDERED: VANCOMYCIN INJ 1,000 MG in SODIUM CHLORIDE 0.9% 250 ML IV PRN (18:31)
[2018-01-01] MEDS ORDERED: AMIODARONE INJ 150 MG in DEXTROSE 5% 100 ML IV ONE (18:37)
[2018-01-01] MEDS ORDERED: ENOXAPARIN 30 MG/0.3 ML SYRINGE SUBCUT SCH ×3 (19:00→21:00)
[2018-01-01] MEDS ORDERED: FUROSEMIDE 20 MG TABLET PO SCH (19:00)
[2018-01-01] MEDS ORDERED: VANCOMYCIN INJ 1,000 MG in SODIUM CHLORIDE 0.9% 250 ML IV ONE (21:00)
[2018-01-01] MEDS: DOCUSATE SODIUM 100 MG CAPSULE PO SCH (21:35)
[2018-01-01] MEDS: APIXABAN 2.5 MG TABLET PO SCH (21:35)
[2018-01-01] MEDS: MEMANTINE 10 MG TABLET PO SCH (21:36)
[2018-01-01] MEDS: AMIODARONE 200 MG TABLET PO SCH (23:10)
[2018-01-01] MEDS: METOPROLOL TARTRATE 25 MG TABLET PO SCH (23:10)
[2018-01-02 04:45] LABS: Basophils # 0.1 10*3/uL (0.0-0.2); Basophils % 0.7 % (0.0-0.8); Eosinophils # 0.2 10*3/uL (0.0-0.87); Eosinophils % 2.2 % (0.00-10.9); Hematocrit 33.1 VOL% (35.7-47.0); Hemoglobin 10.4 GM/DL (12.0-16.0); Immature Granulocytes % 0.6 %; Immature Granulocytes Absolute 0.05 #; Lymphocytes # 1.8 10*3/uL (1.4-4.0); Lymphocytes % 21.8 % (21.3-54.2); Mean Corpuscular HGB Conc 31.4 GM/DL (32-36); Mean Corpuscular Hemoglobin 30 PG (27-34); Mean Platelet Volume 12.8 FL (9.6-12.0); Monocytes # 0.8 10*3/uL (0.11-0.8); Monocytes % 10.1 % (1.7-12.7); Neutrophils # 5.3 10*3/uL (1.4-7.4); Neutrophils % 64.6 % (38.7-73.9); Platelet Count 144 T/CUMM (130-400); Red Blood Count 3.52 MC/CUMM (3.8-5.5); Red Cell Distribution Width 17.1 % (9.3-17.3); White Blood Count 8.1 T/CUMM (4-12)
[2018-01-02 05:11] LABS: Risk Ratio 3.38; VLDL CHOLESTEROL 19.6 MG/DL
[2018-01-02 06:01] LABS: Albumin 2.9 G/DL (3.4-5.0); Bilirubin,Total 1.4 MG/DL (0.2-1.0); Calcium 8.4 MG/DL (8.5-10.1); Osmolality,Calculated 292.1 MOS/KG (273-304); Potassium 3.6 MMOL/L (3.5-5.1); Total Protein 5.9 G/DL (6.4-8.3)
[2018-01-02] MEDS ORDERED: LEVOTHYROXINE 100 MCG TABLET PO SCH (06:30)
[2018-01-02] MEDS: SODIUM CHLORIDE 0.9% 1,000 ML IV SCH ×2 (06:41→19:39)
[2018-01-02] MEDS ORDERED: FUROSEMIDE 40 MG/4 ML VIAL IV SCH (08:00)
[2018-01-02] MEDS ORDERED: MELOXICAM 7.5 MG TABLET PO SCH (09:00)
[2018-01-02] MEDS ORDERED: PANTOPRAZOLE 40 MG TABLET PO SCH (09:00)
[2018-01-02] MEDS ORDERED: FUROSEMIDE 40 MG TABLET PO SCH (09:00)
[2018-01-02] MEDS: INSULIN REGULAR 100 UNIT/ML SUBCUT SCH ×4 (10:09→21:55)
[2018-01-02] MEDS: MONTELUKAST 10 MG TABLET PO SCH (10:11)
[2018-01-02] MEDS: DONEPEZIL 10 MG TABLET PO SCH (10:11)
[2018-01-02] MEDS: MULTIVITAMIN (CENTRUM) TABLET PO SCH (10:11)
[2018-01-02] MEDS: APIXABAN 2.5 MG TABLET PO SCH ×2 (10:12→20:53)
[2018-01-02] MEDS: ASPIRIN EC 81 MG TABLET PO SCH (10:13)
[2018-01-02] MEDS: DOCUSATE SODIUM 100 MG CAPSULE PO SCH ×2 (10:13→20:53)
[2018-01-02] MEDS: MEMANTINE 10 MG TABLET PO SCH ×2 (10:13→20:53)
[2018-01-02] MEDS: AMIODARONE 200 MG TABLET PO SCH ×2 (10:13→20:53)
[2018-01-02] MEDS: CITALOPRAM 40 MG TABLET PO SCH (10:13)
[2018-01-02] MEDS: METOPROLOL TARTRATE 25 MG TABLET PO SCH ×2 (10:14→21:55)
[2018-01-02] MEDS: PANTOPRAZOLE 40 MG VIAL IV SCH (10:39)
[2018-01-02] MEDS: LEVOFLOXACIN INJ 250 MG in PREMIX 1 EACH IV SCH (19:28)
[2018-01-03] MEDS: PHENYLEPHRINE DRIP 40 MG/250 ML PREMIX IV SCH (01:22)
[2018-01-03 04:53] LABS: Basophils % 0.6 % (0.0-0.8); Eosinophils # 0.2 10*3/uL (0.0-0.87); Eosinophils % 2.8 % (0.00-10.9); Hematocrit 30.4 VOL% (35.7-47.0); Hemoglobin 9.9 GM/DL (12.0-16.0); Immature Granulocytes % 0.6 %; Immature Granulocytes Absolute 0.04 #; Lymphocytes # 1.1 10*3/uL (1.4-4.0); Lymphocytes % 17.7 % (21.3-54.2); Mean Corpuscular HGB Conc 32.6 GM/DL (32-36); Mean Corpuscular Hemoglobin 31 PG (27-34); Mean Corpuscular Volume 93.5 FL (87-102); Mean Platelet Volume 12.5 FL (9.6-12.0); Monocytes # 0.6 10*3/uL (0.11-0.8); Monocytes % 9.8 % (1.7-12.7); Neutrophils # 4.4 10*3/uL (1.4-7.4); Neutrophils % 68.5 % (38.7-73.9); Platelet Count 137 T/CUMM (130-400); Red Blood Count 3.25 MC/CUMM (3.8-5.5); Red Cell Distribution Width 17.1 % (9.3-17.3); White Blood Count 6.4 T/CUMM (4-12)
[2018-01-03 05:24] LABS: Calcium 7.8 MG/DL (8.5-10.1); Potassium 3.7 MMOL/L (3.5-5.1)
[2018-01-03] MEDS: LEVOTHYROXINE 112 MCG TABLET PO SCH (05:37)
[2018-01-03] MEDS: INSULIN REGULAR 100 UNIT/ML SUBCUT SCH ×4 (09:00→21:35)
[2018-01-03] MEDS: ASPIRIN EC 81 MG TABLET PO SCH (09:01)
[2018-01-03] MEDS: DONEPEZIL 10 MG TABLET PO SCH (09:01)
[2018-01-03] MEDS: CITALOPRAM 40 MG TABLET PO SCH (09:01)
[2018-01-03] MEDS: DOCUSATE SODIUM 100 MG CAPSULE PO SCH ×2 (09:02→21:35)
[2018-01-03] MEDS: MULTIVITAMIN (CENTRUM) TABLET PO SCH (09:02)
[2018-01-03] MEDS: AMIODARONE 200 MG TABLET PO SCH ×2 (09:02→21:35)
[2018-01-03] MEDS: APIXABAN 2.5 MG TABLET PO SCH ×2 (09:02→21:35)
[2018-01-03] MEDS: MONTELUKAST 10 MG TABLET PO SCH (09:03)
[2018-01-03] MEDS: MEMANTINE 10 MG TABLET PO SCH ×2 (09:03→21:35)
[2018-01-03] MEDS: METOPROLOL TARTRATE 25 MG TABLET PO SCH ×2 (09:03→21:35)
[2018-01-03] MEDS: SODIUM CHLORIDE 0.9% 1,000 ML IV SCH ×3 (09:05→22:43)
[2018-01-03] MEDS: PANTOPRAZOLE 40 MG VIAL IV SCH (09:05)
[2018-01-03] MEDS: VANCOMYCIN INJ 1,000 MG in SODIUM CHLORIDE 0.9% 250 ML IV SCH (11:00)
[2018-01-03] MEDS: LEVOFLOXACIN INJ 250 MG in PREMIX 1 EACH IV SCH (18:22)
[2018-01-04 04:49] LABS: Basophils # 0.1 10*3/uL (0.0-0.2); Basophils % 0.7 % (0.0-0.8); Eosinophils # 0.2 10*3/uL (0.0-0.87); Eosinophils % 2.6 % (0.00-10.9); Hematocrit 31.1 VOL% (35.7-47.0); Hemoglobin 9.9 GM/DL (12.0-16.0); Immature Granulocytes % 0.4 %; Immature Granulocytes Absolute 0.03 #; Lymphocytes # 1.3 10*3/uL (1.4-4.0); Lymphocytes % 17.6 % (21.3-54.2); Mean Corpuscular HGB Conc 31.8 GM/DL (32-36); Mean Corpuscular Hemoglobin 30 PG (27-34); Mean Corpuscular Volume 94.8 FL (87-102); Monocytes # 0.7 10*3/uL (0.11-0.8); Monocytes % 9.8 % (1.7-12.7); Neutrophils # 5.2 10*3/uL (1.4-7.4); Neutrophils % 68.9 % (38.7-73.9); Platelet Count 145 T/CUMM (130-400); Red Blood Count 3.28 MC/CUMM (3.8-5.5); Red Cell Distribution Width 17.2 % (9.3-17.3); White Blood Count 7.6 T/CUMM (4-12)
[2018-01-04 05:14] LABS: Calcium 8.4 MG/DL (8.5-10.1); Potassium 4.1 MMOL/L (3.5-5.1)
[2018-01-04] MEDS: LEVOTHYROXINE 112 MCG TABLET PO SCH (06:27)
[2018-01-04] MEDS: ALBUTEROL/IPRATROPIUM 3 ML NEB RESP TX PRN ×3 (06:42→17:50)
[2018-01-04] MEDS ORDERED: FUROSEMIDE 20 MG/2 ML VIAL IV ONE (08:12)
[2018-01-04] MEDS: AMIODARONE 200 MG TABLET PO SCH ×2 (09:31→20:41)
[2018-01-04] MEDS: METOPROLOL TARTRATE 25 MG TABLET PO SCH ×2 (09:31→20:41)
[2018-01-04] MEDS: CITALOPRAM 40 MG TABLET PO SCH (09:31)
[2018-01-04] MEDS: MEMANTINE 10 MG TABLET PO SCH ×2 (09:31→20:41)
[2018-01-04] MEDS: MULTIVITAMIN (CENTRUM) TABLET PO SCH (09:31)
[2018-01-04] MEDS: APIXABAN 2.5 MG TABLET PO SCH ×2 (09:32→20:41)
[2018-01-04] MEDS: DONEPEZIL 10 MG TABLET PO SCH (09:32)
[2018-01-04] MEDS: MONTELUKAST 10 MG TABLET PO SCH (09:32)
[2018-01-04] MEDS: DOCUSATE SODIUM 100 MG CAPSULE PO SCH ×2 (09:32→20:41)
[2018-01-04] MEDS: ASPIRIN EC 81 MG TABLET PO SCH (09:32)
[2018-01-04] MEDS: INSULIN REGULAR 100 UNIT/ML SUBCUT SCH ×3 (12:48→21:33)
[2018-01-04] MEDS: VANCOMYCIN INJ 1,000 MG in SODIUM CHLORIDE 0.9% 250 ML IV SCH (12:49)
[2018-01-04] MEDS: LEVOFLOXACIN INJ 250 MG in PREMIX 1 EACH IV SCH (18:33)
[2018-01-05] MEDS: ALBUTEROL/IPRATROPIUM 3 ML NEB RESP TX PRN ×2 (03:00→09:00)
[2018-01-05 05:20] LABS: Basophils # 0.1 10*3/uL (0.0-0.2); Basophils % 0.6 % (0.0-0.8); Eosinophils # 0.2 10*3/uL (0.0-0.87); Eosinophils % 2.8 % (0.00-10.9); Hematocrit 32.1 VOL% (35.7-47.0); Hemoglobin 10.1 GM/DL (12.0-16.0); Immature Granulocytes % 0.5 %; Immature Granulocytes Absolute 0.04 #; Lymphocytes # 1.2 10*3/uL (1.4-4.0); Lymphocytes % 13.9 % (21.3-54.2); Mean Corpuscular HGB Conc 31.5 GM/DL (32-36); Mean Corpuscular Hemoglobin 30 PG (27-34); Mean Corpuscular Volume 95.8 FL (87-102); Mean Platelet Volume 12.5 FL (9.6-12.0); Monocytes # 0.9 10*3/uL (0.11-0.8); Neutrophils # 6.1 10*3/uL (1.4-7.4); Neutrophils % 72.2 % (38.7-73.9); Platelet Count 161 T/CUMM (130-400); Red Blood Count 3.35 MC/CUMM (3.8-5.5); Red Cell Distribution Width 17.6 % (9.3-17.3); White Blood Count 8.5 T/CUMM (4-12)
[2018-01-05 05:53] LABS: Calcium 8.2 MG/DL (8.5-10.1); Osmolality,Calculated 281.3 MOS/KG (273-304); Potassium 4.2 MMOL/L (3.5-5.1)
[2018-01-05] MEDS: LEVOTHYROXINE 112 MCG TABLET PO SCH (06:14)
[2018-01-05] MEDS: INSULIN REGULAR 100 UNIT/ML SUBCUT SCH ×4 (08:19→20:53)
[2018-01-05] MEDS: ASPIRIN EC 81 MG TABLET PO SCH (09:52)
[2018-01-05] MEDS: METOPROLOL TARTRATE 25 MG TABLET PO SCH ×2 (09:52→20:42)
[2018-01-05] MEDS: DONEPEZIL 10 MG TABLET PO SCH (09:52)
[2018-01-05] MEDS: MULTIVITAMIN (CENTRUM) TABLET PO SCH (09:52)
[2018-01-05] MEDS: DOCUSATE SODIUM 100 MG CAPSULE PO SCH ×2 (09:52→20:42)
[2018-01-05] MEDS: MONTELUKAST 10 MG TABLET PO SCH (09:52)
[2018-01-05] MEDS: CITALOPRAM 40 MG TABLET PO SCH (09:52)
[2018-01-05] MEDS: AMIODARONE 200 MG TABLET PO SCH ×2 (09:53→20:42)
[2018-01-05] MEDS: MEMANTINE 10 MG TABLET PO SCH ×2 (09:53→20:42)
[2018-01-05] MEDS: VANCOMYCIN INJ 1,000 MG in SODIUM CHLORIDE 0.9% 250 ML IV SCH (09:54)
[2018-01-05] MEDS: APIXABAN 2.5 MG TABLET PO SCH (10:18)
[2018-01-05] MEDS: NON-FORMULARY MEDICATION (Fluticasone/Vilanterol [Breo Ellipta 200-25 Mcg Inh] 1 PUFF) INH SCH (15:43)
[2018-01-05] MEDS: LEVOFLOXACIN INJ 250 MG in PREMIX 1 EACH IV SCH (17:46)
[2018-01-06] MEDS: LEVOTHYROXINE 112 MCG TABLET PO SCH (06:04)
[2018-01-06] MEDS: INSULIN REGULAR 100 UNIT/ML SUBCUT SCH ×4 (07:59→21:19)
[2018-01-06] MEDS: DOCUSATE SODIUM 100 MG CAPSULE PO SCH ×2 (09:17→21:19)
[2018-01-06] MEDS: MULTIVITAMIN (CENTRUM) TABLET PO SCH (09:17)
[2018-01-06] MEDS: AMIODARONE 200 MG TABLET PO SCH ×2 (09:17→21:19)
[2018-01-06] MEDS: MONTELUKAST 10 MG TABLET PO SCH (09:17)
[2018-01-06] MEDS: DONEPEZIL 10 MG TABLET PO SCH (09:17)
[2018-01-06] MEDS: ASPIRIN EC 81 MG TABLET PO SCH (09:17)
[2018-01-06] MEDS: CITALOPRAM 40 MG TABLET PO SCH (09:17)
[2018-01-06] MEDS: MEMANTINE 10 MG TABLET PO SCH ×2 (09:18→21:19)
[2018-01-06] MEDS: METOPROLOL TARTRATE 25 MG TABLET PO SCH ×2 (09:18→21:19)
[2018-01-06] MEDS: NON-FORMULARY MEDICATION (Fluticasone/Vilanterol [Breo Ellipta 200-25 Mcg Inh] 1 PUFF) INH SCH (09:18)
[2018-01-06] MEDS: VANCOMYCIN INJ 1,000 MG in SODIUM CHLORIDE 0.9% 250 ML IV SCH (10:38)
[2018-01-06] MEDS: LEVOFLOXACIN 500 MG TABLET PO SCH (11:26)
[2018-01-06] MEDS: FUROSEMIDE 40 MG TABLET PO SCH (11:26)
[2018-01-06] MEDS: ALBUTEROL/IPRATROPIUM 3 ML NEB RESP TX PRN ×2 (13:12→20:59)
[2018-01-07] MEDS: ALBUTEROL/IPRATROPIUM 3 ML NEB RESP TX PRN ×3 (00:25→11:11)
[2018-01-07] MEDS: LEVOTHYROXINE 112 MCG TABLET PO SCH (06:15)
[2018-01-07 06:20] LABS: Calcium 8.8 MG/DL (8.5-10.1); Osmolality,Calculated 282.1 MOS/KG (273-304); Potassium 3.7 MMOL/L (3.5-5.1)
[2018-01-07] MEDS: INSULIN REGULAR 100 UNIT/ML SUBCUT SCH ×2 (08:48→13:12)
[2018-01-07] MEDS: NON-FORMULARY MEDICATION (Fluticasone/Vilanterol [Breo Ellipta 200-25 Mcg Inh] 1 PUFF) INH SCH (08:48)
[2018-01-07] MEDS: MEMANTINE 10 MG TABLET PO SCH (08:49)
[2018-01-07] MEDS: METOPROLOL TARTRATE 25 MG TABLET PO SCH (08:49)
[2018-01-07] MEDS: DOCUSATE SODIUM 100 MG CAPSULE PO SCH (08:49)
[2018-01-07] MEDS: FUROSEMIDE 40 MG TABLET PO SCH (08:49)
[2018-01-07] MEDS: ASPIRIN EC 81 MG TABLET PO SCH (08:49)
[2018-01-07] MEDS: MULTIVITAMIN (CENTRUM) TABLET PO SCH (08:49)
[2018-01-07] MEDS: AMIODARONE 200 MG TABLET PO SCH (08:49)
[2018-01-07] MEDS: DONEPEZIL 10 MG TABLET PO SCH (08:49)
[2018-01-07] MEDS: CITALOPRAM 40 MG TABLET PO SCH (08:49)
[2018-01-07] MEDS: MONTELUKAST 10 MG TABLET PO SCH (08:49)
[2018-01-07] MEDS: LEVOFLOXACIN 500 MG TABLET PO SCH (10:59)
[2018-01-07 12:34] VITALS: BP 162/72
[2018-01-07] MEDS ORDERED: MAGNESIUM HYDROXIDE SUSP 30 ML UDCUP PO ONE (13:38)
== END 2018-01-07 14:40 | disposition home or self-care (01) | DRG 308 ==
LOC: EDBD → EDUNIT# → N.ED 12:32 → N.EDINP 16:02 → N.CC 17:10 → N.TELES 01-03 15:13
PROVIDERS: ADMIT Internal Medicine; ATTEND Internal Medicine

== ENCOUNTER 2018-03-30 06:52 | Inpatient (IN) ==
[2018-03-30] MEDS ORDERED: ENOXAPARIN 100 MG/ML SYRINGE SUBCUT STA (07:22)
[2018-03-30] MEDS ORDERED: NITROGLYCERIN SL 0.4 MG TABLET SL PRN (07:22)
[2018-03-30] MEDS ORDERED: NITROGLYCERIN 2% OINT 1 INCH/GM PACK TOP STA (07:22)
[2018-03-30 07:45] LABS: Basophils # 0.1 10*3/uL (0.0-0.2); Basophils % 0.9 % (0.0-0.8); Eosinophils # 0.3 10*3/uL (0.0-0.87); Eosinophils % 2.7 % (0.00-10.9); Hematocrit 36.5 VOL% (35.7-47.0); Hemoglobin 12.1 GM/DL (12.0-16.0); Immature Granulocytes % 0.4 %; Immature Granulocytes Absolute 0.04 #; Lymphocytes # 1.6 10*3/uL (1.4-4.0); Lymphocytes % 16.1 % (21.3-54.2); Mean Corpuscular HGB Conc 33.2 GM/DL (32-36); Mean Corpuscular Hemoglobin 30 PG (27-34); Mean Corpuscular Volume 90.3 FL (87-102); Mean Platelet Volume 11.6 FL (9.6-12.0); Monocytes % 9.8 % (1.7-12.7); Neutrophils # 6.8 10*3/uL (1.4-7.4); Neutrophils % 70.1 % (38.7-73.9); Platelet Count 154 T/CUMM (130-400); Red Blood Count 4.04 MC/CUMM (3.8-5.5); Red Cell Distribution Width 15.6 % (9.3-17.3); White Blood Count 9.7 T/CUMM (4-12)
[2018-03-30 07:54] LABS: PT Patient Result 10.4 SECS
[2018-03-30 08:14] LABS: Hypochromasia 1+; Microcytosis Slight; Ovalocytes Slight
[2018-03-30 08:15] LABS: Calcium 8.5 MG/DL (8.5-10.1); Osmolality,Calculated 282.3 MOS/KG (273-304); Platelet Estimate Adequate; Potassium 3.5 MMOL/L (3.5-5.1)
[2018-03-30 08:17] LABS: Apearance,Urine CLEAR (Clear); Bilirubin,Urine Negative (Negative); Blood, Urine Negative (Negative); Glucose,Urine (UA) Negative (Negative); Hyaline Casts,Urine 2 /LPF (0-3); Ketones,Urine Negative (Negative); Mucus,Urine Occasional /LPF (Occasional); Nitrite,Urine Negative (Negative); Protein,Urine Negative; RBC,Urine <1 /HPF (0-4); Squamous Epithelial Cell,Urine Occasional /HPF (0-10); Urine Color Yellow (Yellow); Urine Specific Gravity 1.013 (1.001-1.035); Urine Urobilinogen < 2.0 EU/DL (0.2-1.0); WBC,Urine 1 /HPF (0-6)
[2018-03-30] MEDS ORDERED: FUROSEMIDE 40 MG/4 ML VIAL IV STA (09:42)
[2018-03-30] MEDS ORDERED: ACETAMINOPHEN 325 MG TABLET PO PRN (09:43)
[2018-03-30] MEDS ORDERED: GLUCAGON 1 MG VIAL IM PRN (09:43)
[2018-03-30] MEDS ORDERED: ONDANSETRON 4 MG/2 ML VIAL IV PRN (09:43)
[2018-03-30] MEDS ORDERED: DEXTROSE 50% 25 GM/50 ML VIAL IV PRN (09:43)
[2018-03-30] MEDS ORDERED: ALBUTEROL 2.5 MG/3 ML NEB RESP TX PRN (09:47)
[2018-03-30] MEDS ORDERED: ALPRAZolam 0.25 MG TABLET PO PRN (09:47)
[2018-03-30] MEDS: ENOXAPARIN 40 MG/0.4 ML SYRINGE SUBCUT SCH (11:49)
[2018-03-30] MEDS: INSULIN LISPRO 100 UNIT/ML SUBCUT SCH ×3 (13:02→21:26)
[2018-03-30 13:09] LABS: Troponin I Only < 0.015 NG/ML (0.00-0.045)
[2018-03-30 14:48] LABS: Apearance,Urine CLEAR (Clear); Bilirubin,Urine Negative (Negative); Blood, Urine Negative (Negative); Glucose,Urine (UA) Negative (Negative); Hyaline Casts,Urine 6 /LPF (0-3); Ketones,Urine Negative (Negative); Mucus,Urine Occasional /LPF (Occasional); Nitrite,Urine Negative (Negative); Protein,Urine Negative; RBC,Urine 3 /HPF (0-4); Urine Color Straw (Yellow); Urine Specific Gravity 1.005 (1.001-1.035); Urine Urobilinogen < 2.0 EU/DL (0.2-1.0); WBC,Urine 55 /HPF (0-6)
[2018-03-30 16:59] LABS: Troponin I Only < 0.015 NG/ML (0.00-0.045)
[2018-03-30] MEDS: MONTELUKAST 10 MG TABLET PO SCH (18:50)
[2018-03-30 19:47] LABS: Troponin I Only < 0.015 NG/ML (0.00-0.045)
[2018-03-30] MEDS ORDERED: AMIODARONE 200 MG TABLET PO SCH (21:00)
[2018-03-30] MEDS: METOPROLOL TARTRATE 25 MG TABLET PO SCH (21:26)
[2018-03-30] MEDS: DOCUSATE SODIUM 100 MG CAPSULE PO SCH (21:26)
[2018-03-30] MEDS: MEMANTINE 10 MG TABLET PO SCH (21:26)
[2018-03-30] MEDS: DONEPEZIL 10 MG TABLET PO SCH (21:26)
[2018-03-30] MEDS: MELOXICAM 7.5 MG TABLET PO SCH (21:26)
[2018-03-31 06:09] LABS: Calcium 8.3 MG/DL (8.5-10.1); Osmolality,Calculated 281.3 MOS/KG (273-304); Potassium 3.2 MMOL/L (3.5-5.1)
[2018-03-31 06:26] LABS: Risk Ratio 2.81; VLDL CHOLESTEROL 18.4 MG/DL
[2018-03-31] MEDS: LEVOTHYROXINE 112 MCG TABLET PO SCH (06:35)
[2018-03-31] MEDS: POTASSIUM CHLORIDE 20 MEQ/15 ML UDCUP PER TUBE PRN ×4 (06:36→15:13)
[2018-03-31] MEDS: INSULIN LISPRO 100 UNIT/ML SUBCUT SCH ×4 (07:47→20:43)
[2018-03-31] MEDS ORDERED: CITALOPRAM 40 MG TABLET PO SCH (09:00)
[2018-03-31] MEDS: PANTOPRAZOLE 40 MG TABLET PO SCH (09:07)
[2018-03-31] MEDS: METOPROLOL TARTRATE 25 MG TABLET PO SCH ×2 (09:07→20:39)
[2018-03-31] MEDS: MEMANTINE 10 MG TABLET PO SCH ×2 (09:07→20:39)
[2018-03-31] MEDS: MULTIVITAMIN (CENTRUM) TABLET PO SCH (09:07)
[2018-03-31] MEDS: DOCUSATE SODIUM 100 MG CAPSULE PO SCH ×2 (09:07→20:39)
[2018-03-31] MEDS: ASPIRIN EC 81 MG TABLET PO SCH (09:07)
[2018-03-31] MEDS: ENOXAPARIN 40 MG/0.4 ML SYRINGE SUBCUT SCH (09:08)
[2018-03-31] MEDS: NON-FORMULARY MEDICATION (Fluticasone/Vilanterol [Breo Ellipta 200-25 Mcg Inh] 1 PUFF) INH SCH (09:10)
[2018-03-31] MEDS: MONTELUKAST 10 MG TABLET PO SCH (18:04)
[2018-03-31] MEDS: MELOXICAM 7.5 MG TABLET PO SCH (20:38)
[2018-03-31] MEDS: DONEPEZIL 10 MG TABLET PO SCH (20:38)
[2018-04-01 02:52] LABS: Calcium 8.5 MG/DL (8.5-10.1); Osmolality,Calculated 279.5 MOS/KG (273-304); Potassium 4.5 MMOL/L (3.5-5.1)
[2018-04-01] MEDS: LEVOTHYROXINE 112 MCG TABLET PO SCH (06:43)
[2018-04-01] MEDS: INSULIN LISPRO 100 UNIT/ML SUBCUT SCH ×4 (08:14→20:40)
[2018-04-01] MEDS: METOPROLOL TARTRATE 25 MG TABLET PO SCH ×2 (09:03→20:41)
[2018-04-01] MEDS: FUROSEMIDE 40 MG/4 ML VIAL IV SCH (09:03)
[2018-04-01] MEDS: ENOXAPARIN 40 MG/0.4 ML SYRINGE SUBCUT SCH (09:03)
[2018-04-01] MEDS: MEMANTINE 10 MG TABLET PO SCH ×2 (09:03→20:41)
[2018-04-01] MEDS: PANTOPRAZOLE 40 MG TABLET PO SCH (09:03)
[2018-04-01] MEDS: ASPIRIN EC 81 MG TABLET PO SCH (09:03)
[2018-04-01] MEDS: NON-FORMULARY MEDICATION (Fluticasone/Vilanterol [Breo Ellipta 200-25 Mcg Inh] 1 PUFF) INH SCH (09:03)
[2018-04-01] MEDS: MULTIVITAMIN (CENTRUM) TABLET PO SCH (09:03)
[2018-04-01] MEDS: DOCUSATE SODIUM 100 MG CAPSULE PO SCH ×2 (09:04→20:41)
[2018-04-01] MEDS: MONTELUKAST 10 MG TABLET PO SCH (18:04)
[2018-04-01] MEDS: DONEPEZIL 10 MG TABLET PO SCH (20:41)
[2018-04-01] MEDS: MELOXICAM 7.5 MG TABLET PO SCH (20:41)
[2018-04-02 05:11] LABS: Calcium 8.6 MG/DL (8.5-10.1); Osmolality,Calculated 276.7 MOS/KG (273-304); Potassium 4.4 MMOL/L (3.5-5.1)
[2018-04-02] MEDS: LEVOTHYROXINE 112 MCG TABLET PO SCH (06:08)
[2018-04-02 07:50] VITALS: BP 150/73
[2018-04-02] MEDS: INSULIN LISPRO 100 UNIT/ML SUBCUT SCH (08:11)
[2018-04-02] MEDS: MULTIVITAMIN (CENTRUM) TABLET PO SCH (08:45)
[2018-04-02] MEDS: DOCUSATE SODIUM 100 MG CAPSULE PO SCH (08:45)
[2018-04-02] MEDS: METOPROLOL TARTRATE 25 MG TABLET PO SCH (08:45)
[2018-04-02] MEDS: ASPIRIN EC 81 MG TABLET PO SCH (08:45)
[2018-04-02] MEDS: PANTOPRAZOLE 40 MG TABLET PO SCH (08:45)
[2018-04-02] MEDS: MEMANTINE 10 MG TABLET PO SCH (08:45)
[2018-04-02] MEDS: FUROSEMIDE 40 MG/4 ML VIAL IV SCH (08:46)
[2018-04-02] MEDS: NON-FORMULARY MEDICATION (Fluticasone/Vilanterol [Breo Ellipta 200-25 Mcg Inh] 1 PUFF) INH SCH (08:51)
[2018-04-02] MEDS: ENOXAPARIN 40 MG/0.4 ML SYRINGE SUBCUT SCH (09:12)
== END 2018-04-02 10:14 | disposition home health service (06) | DRG 291 ==
LOC: EDBD → EDUNIT# → N.ED 06:52 → N.EDINP 09:43 → N.TELEN 11:11
PROVIDERS: ADMIT Internal Medicine; ATTEND Internal Medicine

== ENCOUNTER 2018-04-25 14:00 | Inpatient (IN) ==
[2018-04-25] MEDS ORDERED: FLUMAZENIL 1 MG/10 ML VIAL IV STA (14:17)
[2018-04-25] MEDS ORDERED: SODIUM CHLORIDE 0.9% 1,000 ML IV STA (14:17)
[2018-04-25 15:29] LABS: Basophils # 0.1 10*3/uL (0.0-0.2); Basophils % 0.5 % (0.0-0.8); Eosinophils # 0.1 10*3/uL (0.0-0.87); Eosinophils % 0.5 % (0.00-10.9); Hemoglobin 11.7 GM/DL (12.0-16.0); Immature Granulocytes % 0.5 %; Immature Granulocytes Absolute 0.06 #; Lymphocytes # 1.1 10*3/uL (1.4-4.0); Mean Corpuscular HGB Conc 32.5 GM/DL (32-36); Mean Corpuscular Hemoglobin 30 PG (27-34); Mean Corpuscular Volume 91.8 FL (87-102); Mean Platelet Volume 11.9 FL (9.6-12.0); Monocytes # 0.9 10*3/uL (0.11-0.8); Monocytes % 8.6 % (1.7-12.7); Neutrophils # 8.8 10*3/uL (1.4-7.4); Neutrophils % 79.9 % (38.7-73.9); Platelet Count 157 T/CUMM (130-400); Red Blood Count 3.92 MC/CUMM (3.8-5.5); Red Cell Distribution Width 16.3 % (9.3-17.3)
[2018-04-25 15:41] LABS: PT Patient Result 10.7 SECS; Partial Thromboplastin Time 22.4 SECS (0-40)
[2018-04-25] MEDS ORDERED: FLUMAZENIL 0.5 MG/5 ML VIAL IV STA (15:53)
[2018-04-25 15:56] LABS: Albumin 3.7 G/DL (3.4-5.0); Bilirubin,Total 0.8 MG/DL (0.2-1.0); Calcium 8.8 MG/DL (8.5-10.1); Potassium 3.6 MMOL/L (3.5-5.1); Total Protein 6.5 G/DL (6.4-8.3)
[2018-04-25] MEDS ORDERED: FLUMAZENIL 0.5 MG/5 ML VIAL IV ONE ×4 (15:57→20:28)
[2018-04-25] MEDS ORDERED: FLUMAZENIL 1 MG/10 ML VIAL IV ONE (16:10)
[2018-04-25 16:12] LABS: Band Neutrophils 1 % (0-10); Lymphocytes 5 % (20-55); Segmented Neutrophils 86 % (50-85); Total Cells Counted 100
[2018-04-25] MEDS ORDERED: ONDANSETRON 4 MG/2 ML VIAL IV PRN (17:30)
[2018-04-25] MEDS: SODIUM CHLORIDE 0.45% 1,000 ML IV SCH (17:45)
[2018-04-25] MEDS: ALBUTEROL 2.5 MG/3 ML NEB RESP TX SCH (18:52)
[2018-04-25] MEDS ORDERED: PHENYLEPHRINE DRIP 40 MG/250 ML PREMIX IV PRN (20:37)
[2018-04-25] MEDS: LEVOFLOXACIN INJ 750 MG in PREMIX 1 EACH IV SCH (21:49)
[2018-04-26] MEDS: ALBUTEROL 2.5 MG/3 ML NEB RESP TX SCH ×4 (00:34→20:07)
[2018-04-26] MEDS: SODIUM CHLORIDE 0.45% 1,000 ML IV SCH ×2 (04:18→04:19)
[2018-04-26 07:13] LABS: Basophils # 0.1 10*3/uL (0.0-0.2); Basophils % 0.8 % (0.0-0.8); Eosinophils # 0.2 10*3/uL (0.0-0.87); Eosinophils % 2.9 % (0.00-10.9); Hematocrit 32.1 VOL% (35.7-47.0); Hemoglobin 10.5 GM/DL (12.0-16.0); Immature Granulocytes % 0.4 %; Immature Granulocytes Absolute 0.03 #; Lymphocytes # 1.4 10*3/uL (1.4-4.0); Lymphocytes % 18.2 % (21.3-54.2); Mean Corpuscular HGB Conc 32.7 GM/DL (32-36); Mean Corpuscular Hemoglobin 30 PG (27-34); Mean Corpuscular Volume 92.8 FL (87-102); Mean Platelet Volume 11.8 FL (9.6-12.0); Monocytes # 0.8 10*3/uL (0.11-0.8); Monocytes % 10.8 % (1.7-12.7); Neutrophils % 66.9 % (38.7-73.9); Platelet Count 145 T/CUMM (130-400); Red Blood Count 3.46 MC/CUMM (3.8-5.5); Red Cell Distribution Width 16.2 % (9.3-17.3); White Blood Count 7.5 T/CUMM (4-12)
[2018-04-26 07:41] LABS: Calcium 8.2 MG/DL (8.5-10.1); Potassium 3.7 MMOL/L (3.5-5.1)
[2018-04-26] MEDS ORDERED: ONDANSETRON 4 MG TABLET PO PRN (08:59)
[2018-04-26] MEDS ORDERED: ALBUTEROL 2.5 MG/3 ML NEB RESP TX PRN (08:59)
[2018-04-26] MEDS ORDERED: ACETAMINOPHEN 325 MG TABLET PO PRN (08:59)
[2018-04-26] MEDS ORDERED: SODIUM CHLORIDE 0.9% 250 ML IV ONE (09:21)
[2018-04-26] MEDS: SODIUM CHLORIDE 0.9% 1,000 ML IV SCH ×3 (09:57→20:32)
[2018-04-26 10:07] LABS: Apearance,Urine CLEAR (Clear); Bilirubin,Urine Negative (Negative); Blood, Urine Negative (Negative); Glucose,Urine (UA) Negative (Negative); Hyaline Casts,Urine 1 /LPF (0-3); Ketones,Urine Negative (Negative); Mucus,Urine Occasional /LPF (Occasional); Nitrite,Urine Negative (Negative); Protein,Urine Negative; RBC,Urine 1 /HPF (0-4); Squamous Epithelial Cell,Urine Occasional /HPF (0-10); Urine Color Yellow (Yellow); Urine Specific Gravity 1.011 (1.001-1.035); Urine Urobilinogen < 2.0 EU/DL (0.2-1.0); WBC,Urine 3 /HPF (0-6)
[2018-04-26] MEDS: ASPIRIN EC 81 MG TABLET PO SCH (10:17)
[2018-04-26] MEDS: CITALOPRAM 20 MG TABLET PO SCH (10:17)
[2018-04-26] MEDS: METOPROLOL TARTRATE 25 MG TABLET PO SCH ×2 (10:21→20:31)
[2018-04-26] MEDS: DONEPEZIL 10 MG TABLET PO SCH (10:21)
[2018-04-26] MEDS: MEMANTINE 10 MG TABLET PO SCH ×2 (10:21→20:30)
[2018-04-26] MEDS: VILANTEROL INH SCH (10:29)
[2018-04-26] MEDS: FLUTICASONE INH SCH (10:29)
[2018-04-26] MEDS: ZINC OXIDE PASTE 113 GM TUBE TOP SCH (12:15)
[2018-04-26] MEDS ORDERED: DONEPEZIL HCL PO SCH (19:00)
[2018-04-26] MEDS ORDERED: MEMANTINE HCL PO SCH (19:00)
[2018-04-26] MEDS: MONTELUKAST 10 MG TABLET PO SCH (20:29)
[2018-04-26] MEDS: PANTOPRAZOLE 40 MG TABLET PO SCH (20:29)
[2018-04-26] MEDS: MELATONIN 3 MG TABLET PO SCH (20:30)
[2018-04-27] MEDS: ALBUTEROL 2.5 MG/3 ML NEB RESP TX SCH ×4 (01:15→19:10)
[2018-04-27] MEDS: ZINC OXIDE PASTE 113 GM TUBE TOP SCH ×2 (01:50→08:30)
[2018-04-27 05:44] LABS: Basophils # 0.1 10*3/uL (0.0-0.2); Basophils % 0.9 % (0.0-0.8); Eosinophils # 0.2 10*3/uL (0.0-0.87); Eosinophils % 3.6 % (0.00-10.9); Hematocrit 30.9 VOL% (35.7-47.0); Hemoglobin 10.1 GM/DL (12.0-16.0); Immature Granulocytes % 0.3 %; Immature Granulocytes Absolute 0.02 #; Lymphocytes # 1.3 10*3/uL (1.4-4.0); Lymphocytes % 21.6 % (21.3-54.2); Mean Corpuscular HGB Conc 32.7 GM/DL (32-36); Mean Corpuscular Hemoglobin 31 PG (27-34); Mean Corpuscular Volume 93.4 FL (87-102); Mean Platelet Volume 11.3 FL (9.6-12.0); Monocytes # 0.6 10*3/uL (0.11-0.8); Monocytes % 10.4 % (1.7-12.7); Neutrophils # 3.7 10*3/uL (1.4-7.4); Neutrophils % 63.2 % (38.7-73.9); Platelet Count 116 T/CUMM (130-400); Red Blood Count 3.31 MC/CUMM (3.8-5.5); White Blood Count 5.9 T/CUMM (4-12)
[2018-04-27] MEDS: LEVOTHYROXINE 125 MCG TABLET PO SCH (06:12)
[2018-04-27 06:21] LABS: Calcium 7.9 MG/DL (8.5-10.1); Osmolality,Calculated 291.4 MOS/KG (273-304); Potassium 3.2 MMOL/L (3.5-5.1)
[2018-04-27] MEDS: SODIUM CHLORIDE 0.9% 1,000 ML IV SCH ×2 (07:05→17:06)
[2018-04-27] MEDS: MEMANTINE 10 MG TABLET PO SCH ×2 (08:28→20:19)
[2018-04-27] MEDS: METOPROLOL TARTRATE 25 MG TABLET PO SCH (08:28)
[2018-04-27] MEDS: ASPIRIN EC 81 MG TABLET PO SCH (08:28)
[2018-04-27] MEDS: DONEPEZIL 10 MG TABLET PO SCH (08:28)
[2018-04-27] MEDS: CITALOPRAM 20 MG TABLET PO SCH (08:28)
[2018-04-27] MEDS: FLUTICASONE INH SCH (08:29)
[2018-04-27] MEDS: VILANTEROL INH SCH (08:29)
[2018-04-27] MEDS: POTASSIUM CHLORIDE 20 MEQ/15 ML UDCUP PO SCH (08:54)
[2018-04-27] MEDS ORDERED: POTASSIUM CHLORIDE 20 MEQ/15 ML UDCUP PO ONE (09:00)
[2018-04-27] MEDS: LEVOFLOXACIN INJ 750 MG in PREMIX 1 EACH IV SCH (20:20)
[2018-04-27] MEDS: MONTELUKAST 10 MG TABLET PO SCH (20:20)
[2018-04-27] MEDS: PANTOPRAZOLE 40 MG TABLET PO SCH (20:20)
[2018-04-27] MEDS: MELATONIN 3 MG TABLET PO SCH (20:20)
[2018-04-28] MEDS: ALBUTEROL 2.5 MG/3 ML NEB RESP TX SCH ×3 (01:33→13:30)
[2018-04-28] MEDS: ZINC OXIDE PASTE 113 GM TUBE TOP SCH ×3 (01:35→20:51)
[2018-04-28] MEDS: SODIUM CHLORIDE 0.9% 1,000 ML IV SCH ×3 (03:07→13:33)
[2018-04-28] MEDS: METOPROLOL TARTRATE 25 MG TABLET PO SCH ×3 (04:26→20:50)
[2018-04-28 05:19] LABS: Basophils % 0.7 % (0.0-0.8); Eosinophils # 0.2 10*3/uL (0.0-0.87); Eosinophils % 3.4 % (0.00-10.9); Hematocrit 32.3 VOL% (35.7-47.0); Hemoglobin 10.4 GM/DL (12.0-16.0); Immature Granulocytes % 0.5 %; Immature Granulocytes Absolute 0.03 #; Lymphocytes # 1.3 10*3/uL (1.4-4.0); Lymphocytes % 22.2 % (21.3-54.2); Mean Corpuscular HGB Conc 32.2 GM/DL (32-36); Mean Corpuscular Hemoglobin 30 PG (27-34); Mean Corpuscular Volume 93.4 FL (87-102); Mean Platelet Volume 11.7 FL (9.6-12.0); Monocytes # 0.7 10*3/uL (0.11-0.8); Monocytes % 11.6 % (1.7-12.7); Neutrophils # 3.7 10*3/uL (1.4-7.4); Neutrophils % 61.6 % (38.7-73.9); Platelet Count 115 T/CUMM (130-400); Red Blood Count 3.46 MC/CUMM (3.8-5.5); Red Cell Distribution Width 16.1 % (9.3-17.3)
[2018-04-28 05:32] LABS: Calcium 8.3 MG/DL (8.5-10.1); Osmolality,Calculated 285.7 MOS/KG (273-304); Potassium 3.8 MMOL/L (3.5-5.1)
[2018-04-28] MEDS: LEVOTHYROXINE 125 MCG TABLET PO SCH (06:06)
[2018-04-28] MEDS: FLUTICASONE INH SCH (08:21)
[2018-04-28] MEDS: VILANTEROL INH SCH (08:21)
[2018-04-28] MEDS: CITALOPRAM 20 MG TABLET PO SCH (08:21)
[2018-04-28] MEDS: MEMANTINE 10 MG TABLET PO SCH ×2 (08:21→20:50)
[2018-04-28] MEDS: ASPIRIN EC 81 MG TABLET PO SCH (08:21)
[2018-04-28] MEDS: DONEPEZIL 10 MG TABLET PO SCH (08:21)
[2018-04-28] MEDS: POTASSIUM CHLORIDE 20 MEQ/15 ML UDCUP PO SCH (08:21)
[2018-04-28] MEDS: MELATONIN 3 MG TABLET PO SCH (20:49)
[2018-04-28] MEDS: MONTELUKAST 10 MG TABLET PO SCH (20:50)
[2018-04-28] MEDS: PANTOPRAZOLE 40 MG TABLET PO SCH (20:50)
[2018-04-28] MEDS: OLANZapine 2.5 MG TABLET PO SCH (21:00)
[2018-04-29] MEDS: ALBUTEROL 2.5 MG/3 ML NEB RESP TX SCH ×5 (00:30→20:14)
[2018-04-29] MEDS: SODIUM CHLORIDE 0.9% 1,000 ML IV SCH ×2 (01:27→09:23)
[2018-04-29] MEDS: LEVOTHYROXINE 125 MCG TABLET PO SCH (06:05)
[2018-04-29 07:40] LABS: Basophils # 0.1 10*3/uL (0.0-0.2); Basophils % 0.5 % (0.0-0.8); Eosinophils # 0.2 10*3/uL (0.0-0.87); Eosinophils % 1.7 % (0.00-10.9); Hemoglobin 11.1 GM/DL (12.0-16.0); Immature Granulocytes % 0.4 %; Immature Granulocytes Absolute 0.04 #; Lymphocytes # 1.7 10*3/uL (1.4-4.0); Lymphocytes % 16.2 % (21.3-54.2); Mean Corpuscular HGB Conc 31.7 GM/DL (32-36); Mean Corpuscular Hemoglobin 30 PG (27-34); Mean Corpuscular Volume 95.4 FL (87-102); Mean Platelet Volume 11.6 FL (9.6-12.0); Monocytes # 1.1 10*3/uL (0.11-0.8); Monocytes % 10.2 % (1.7-12.7); Neutrophils # 7.6 10*3/uL (1.4-7.4); Platelet Count 127 T/CUMM (130-400); Red Blood Count 3.67 MC/CUMM (3.8-5.5)
[2018-04-29 08:03] LABS: Calcium 8.4 MG/DL (8.5-10.1); Osmolality,Calculated 288.7 MOS/KG (273-304)
[2018-04-29 08:22] LABS: White Blood Count 10.7 T/CUMM (4-12)
[2018-04-29] MEDS: METOPROLOL TARTRATE 25 MG TABLET PO SCH ×2 (09:23→20:56)
[2018-04-29] MEDS: POTASSIUM CHLORIDE 20 MEQ/15 ML UDCUP PO SCH (09:24)
[2018-04-29] MEDS: ASPIRIN EC 81 MG TABLET PO SCH (09:24)
[2018-04-29] MEDS: MEMANTINE 10 MG TABLET PO SCH ×2 (09:24→20:56)
[2018-04-29] MEDS: CITALOPRAM 20 MG TABLET PO SCH (09:24)
[2018-04-29] MEDS: ZINC OXIDE PASTE 113 GM TUBE TOP SCH ×2 (09:24→20:56)
[2018-04-29] MEDS: DONEPEZIL 10 MG TABLET PO SCH (09:24)
[2018-04-29] MEDS: FLUTICASONE INH SCH (09:25)
[2018-04-29] MEDS: VILANTEROL INH SCH (09:25)
[2018-04-29] MEDS: OLANZapine 2.5 MG TABLET PO SCH (20:56)
[2018-04-29] MEDS: PANTOPRAZOLE 40 MG TABLET PO SCH (20:56)
[2018-04-29] MEDS: MELATONIN 3 MG TABLET PO SCH (20:56)
[2018-04-29] MEDS: MONTELUKAST 10 MG TABLET PO SCH (20:56)
[2018-04-29] MEDS: LEVOFLOXACIN INJ 750 MG in PREMIX 1 EACH IV SCH (21:12)
[2018-04-30] MEDS: ALBUTEROL 2.5 MG/3 ML NEB RESP TX SCH ×4 (00:15→19:10)
[2018-04-30] MEDS: LEVOTHYROXINE 125 MCG TABLET PO SCH (06:17)
[2018-04-30] MEDS: DONEPEZIL 10 MG TABLET PO SCH (09:36)
[2018-04-30] MEDS: CITALOPRAM 20 MG TABLET PO SCH (09:36)
[2018-04-30] MEDS: MEMANTINE 10 MG TABLET PO SCH ×2 (09:37→20:43)
[2018-04-30] MEDS: METOPROLOL TARTRATE 25 MG TABLET PO SCH ×2 (09:37→20:44)
[2018-04-30] MEDS: POTASSIUM CHLORIDE 20 MEQ/15 ML UDCUP PO SCH (09:37)
[2018-04-30] MEDS: ASPIRIN EC 81 MG TABLET PO SCH (09:37)
[2018-04-30] MEDS: ZINC OXIDE PASTE 113 GM TUBE TOP SCH ×2 (09:37→20:43)
[2018-04-30] MEDS: VILANTEROL INH SCH (10:55)
[2018-04-30] MEDS: FLUTICASONE INH SCH (10:55)
[2018-04-30] MEDS ORDERED: FUROSEMIDE 40 MG TABLET PO ONE (17:12)
[2018-04-30] MEDS: MONTELUKAST 10 MG TABLET PO SCH (20:43)
[2018-04-30] MEDS: PANTOPRAZOLE 40 MG TABLET PO SCH (20:43)
[2018-04-30] MEDS: OLANZapine 2.5 MG TABLET PO SCH (20:44)
[2018-04-30] MEDS: MELATONIN 3 MG TABLET PO SCH (20:44)
[2018-05-01] MEDS: ALBUTEROL 2.5 MG/3 ML NEB RESP TX SCH ×4 (00:20→20:05)
[2018-05-01 05:21] LABS: Basophils % 0.6 % (0.0-0.8); Eosinophils # 0.3 10*3/uL (0.0-0.87); Hematocrit 32.5 VOL% (35.7-47.0); Hemoglobin 10.5 GM/DL (12.0-16.0); Immature Granulocytes % 0.6 %; Immature Granulocytes Absolute 0.04 #; Lymphocytes # 1.2 10*3/uL (1.4-4.0); Lymphocytes % 19.5 % (21.3-54.2); Mean Corpuscular HGB Conc 32.3 GM/DL (32-36); Mean Corpuscular Hemoglobin 30 PG (27-34); Mean Corpuscular Volume 92.6 FL (87-102); Mean Platelet Volume 12.6 FL (9.6-12.0); Monocytes # 0.7 10*3/uL (0.11-0.8); Monocytes % 10.8 % (1.7-12.7); Neutrophils # 4.1 10*3/uL (1.4-7.4); Neutrophils % 64.5 % (38.7-73.9); Platelet Count 96 T/CUMM (130-400); Red Blood Count 3.51 MC/CUMM (3.8-5.5); Red Cell Distribution Width 16.3 % (9.3-17.3); White Blood Count 6.3 T/CUMM (4-12)
[2018-05-01 05:43] LABS: Calcium 8.7 MG/DL (8.5-10.1); Osmolality,Calculated 285.7 MOS/KG (273-304); Potassium 3.9 MMOL/L (3.5-5.1)
[2018-05-01 05:58] LABS: Hypochromasia Slight; Microcytosis 1+
[2018-05-01 05:59] LABS: Platelet Estimate Decreased
[2018-05-01] MEDS: LEVOTHYROXINE 125 MCG TABLET PO SCH (06:28)
[2018-05-01] MEDS ORDERED: TUBERCULIN SKIN TEST 0.1 ML SYRINGE INTRADERM ONE (06:55)
[2018-05-01] MEDS: DONEPEZIL 10 MG TABLET PO SCH (09:03)
[2018-05-01] MEDS: POTASSIUM CHLORIDE 20 MEQ/15 ML UDCUP PO SCH (09:03)
[2018-05-01] MEDS: CITALOPRAM 20 MG TABLET PO SCH (09:03)
[2018-05-01] MEDS: FLUTICASONE INH SCH (09:04)
[2018-05-01] MEDS: VILANTEROL INH SCH (09:04)
[2018-05-01] MEDS: ZINC OXIDE PASTE 113 GM TUBE TOP SCH ×2 (09:04→21:50)
[2018-05-01] MEDS: MEMANTINE 10 MG TABLET PO SCH ×2 (09:04→21:38)
[2018-05-01] MEDS: ASPIRIN EC 81 MG TABLET PO SCH (09:04)
[2018-05-01] MEDS: METOPROLOL TARTRATE 25 MG TABLET PO SCH ×2 (09:04→21:37)
[2018-05-01] MEDS: FUROSEMIDE 40 MG TABLET PO SCH (09:04)
[2018-05-01] MEDS: MELATONIN 3 MG TABLET PO SCH (21:37)
[2018-05-01] MEDS: PANTOPRAZOLE 40 MG TABLET PO SCH (21:38)
[2018-05-01] MEDS: MONTELUKAST 10 MG TABLET PO SCH (21:38)
[2018-05-01] MEDS: OLANZapine 2.5 MG TABLET PO SCH (21:38)
[2018-05-01] MEDS: LEVOFLOXACIN INJ 750 MG in PREMIX 1 EACH IV SCH (21:38)
[2018-05-01] MEDS: SODIUM CHLORIDE 0.9% 1,000 ML IV SCH (23:42)
[2018-05-02] MEDS: ALBUTEROL 2.5 MG/3 ML NEB RESP TX SCH ×3 (01:41→13:31)
[2018-05-02] MEDS: LEVOTHYROXINE 125 MCG TABLET PO SCH (06:05)
[2018-05-02] MEDS: DONEPEZIL 10 MG TABLET PO SCH (08:27)
[2018-05-02] MEDS: CITALOPRAM 20 MG TABLET PO SCH (08:27)
[2018-05-02] MEDS: FUROSEMIDE 40 MG TABLET PO SCH (08:27)
[2018-05-02] MEDS: MEMANTINE 10 MG TABLET PO SCH (08:28)
[2018-05-02] MEDS: ASPIRIN EC 81 MG TABLET PO SCH (08:28)
[2018-05-02] MEDS: METOPROLOL TARTRATE 25 MG TABLET PO SCH (08:28)
[2018-05-02] MEDS: VILANTEROL INH SCH (08:28)
[2018-05-02] MEDS: FLUTICASONE INH SCH (08:28)
[2018-05-02] MEDS: POTASSIUM CHLORIDE 20 MEQ/15 ML UDCUP PO SCH (08:29)
[2018-05-02] MEDS: ZINC OXIDE PASTE 113 GM TUBE TOP SCH (08:30)
[2018-05-02 15:52] VITALS: BP 159/89
== END 2018-05-02 16:10 | DRG 605 ==
LOC: EDBD → EDUNIT# → N.ED 14:00 → N.EDINP 17:20 → N.CC 18:47 → N.4E 04-28 16:42
PROVIDERS: ADMIT Internal Medicine; ATTEND Internal Medicine

== ENCOUNTER 2019-05-25 12:49 | Observation (INO) ==
[2019-05-25 13:53] LABS: Basophils # 0.1 10*3/uL (0.0-0.2); Basophils % 0.5 % (0.0-0.8); Eosinophils # 0.1 10*3/uL (0.0-0.87); Eosinophils % 1.2 % (0.00-10.9); Hematocrit 45.4 VOL% (35.7-47.0); Hemoglobin 14.6 GM/DL (12.0-16.0); Immature Granulocytes % 0.3 %; Immature Granulocytes Absolute 0.03 #; Lymphocytes # 1.9 10*3/uL (1.4-4.0); Lymphocytes % 20.5 % (21.3-54.2); Mean Corpuscular HGB Conc 32.2 GM/DL (32-36); Mean Corpuscular Volume 94.6 FL (87-102); Mean Platelet Volume 10.6 FL (9.6-12.0); Monocytes % 9.6 % (1.7-12.7); Neutrophils % 67.9 % (38.7-73.9); Platelet Count 174 T/CUMM (130-400); Red Cell Distribution Width 12.8 % (9.3-17.3); White Blood Count 9.3 T/CUMM (4-12)
[2019-05-25 14:01] LABS: PT Patient Result 10.7 SECS; Partial Thromboplastin Time 25.8 SECS (0-40)
[2019-05-25 14:17] LABS: Alanine Aminotransferase 27 U/L (13-56); Albumin 3.8 G/DL (3.4-5.0); Alkaline Phosphatase 118 U/L (45-117); Amylase 43 U/L (25-115); Aspartate Amino Transferase 19 U/L (0-37); Blood Urea Nitrogen 24 MG/DL (7-18); Calcium 9.7 MG/DL (8.5-10.1); Glucose 118 MG/DL (74-106); Osmolality,Calculated 290.8 MOS/KG (273-304); Total Protein 7.3 G/DL (6.4-8.3); Troponin I < 0.015 NG/ML (0.00-0.045)
[2019-05-25 14:49] LABS: Apearance,Urine CLEAR (Clear); Bilirubin,Urine Negative (Negative); Blood, Urine Negative (Negative); Glucose,Urine (UA) Negative (Negative); Hyaline Casts,Urine 22 /LPF (0-3); Ketones,Urine Negative (Negative); Mucus,Urine Occasional /LPF (Occasional); Nitrite,Urine Negative (Negative); Protein,Urine Negative; Urine Color Yellow (Yellow); Urine Urobilinogen < 2.0 EU/DL (0.2-1.0)
[2019-05-25] MEDS ORDERED: ONDANSETRON 4 MG/2 ML VIAL IV PRN ×2 (16:37→17:12)
[2019-05-25] MEDS ORDERED: PROMETHAZINE 25 MG/1 ML VIAL IM PRN ×2 (16:37→17:12)
[2019-05-25] MEDS ORDERED: ACETAMINOPHEN 325 MG TABLET PO PRN ×2 (16:37→17:12)
[2019-05-25] MEDS ORDERED: ZALEPLON 5 MG CAPSULE PO PRN (16:37)
[2019-05-25] MEDS ORDERED: SODIUM CHLORIDE 0.9% 1,000 ML IV SCH (17:00)
[2019-05-25] MEDS ORDERED: DEXTROSE 50% 25 GM/50 ML VIAL IV PRN (17:12)
[2019-05-25] MEDS ORDERED: GLUCAGON 1 MG VIAL IM PRN (17:12)
[2019-05-25] MEDS: SODIUM CHLORIDE 0.9% 1,000 ML IV SCH (18:33)
[2019-05-25] MEDS: HEPARIN 5,000 UNIT/1 ML VIAL SUBCUT SCH (20:55)
[2019-05-25] MEDS: metroNIDAZOLE INJ 250 MG in IV BAG 1 EACH IV SCH (20:55)
[2019-05-25] MEDS: INSULIN REGULAR 100 UNIT/ML SUBCUT SCH (20:56)
[2019-05-25] MEDS: DOCUSATE SODIUM 100 MG CAPSULE PO SCH (20:56)
[2019-05-25] MEDS ORDERED: DOCUSATE SODIUM 100 MG CAPSULE PO SCH (21:00)
[2019-05-25] MEDS: VANCOMYCIN 50 MG/ML 60 ML/BOTTLE PO SCH (23:14)
[2019-05-26] MEDS: VANCOMYCIN 50 MG/ML 60 ML/BOTTLE PO SCH ×3 (05:07→17:40)
[2019-05-26] MEDS: HEPARIN 5,000 UNIT/1 ML VIAL SUBCUT SCH ×2 (05:07→12:26)
[2019-05-26] MEDS: metroNIDAZOLE INJ 250 MG in IV BAG 1 EACH IV SCH ×2 (05:07→12:26)
[2019-05-26 06:09] LABS: Basophils # 0.1 10*3/uL (0.0-0.2); Basophils % 0.7 % (0.0-0.8); Eosinophils # 0.1 10*3/uL (0.0-0.87); Eosinophils % 1.9 % (0.00-10.9); Hemoglobin 13.3 GM/DL (12.0-16.0); Immature Granulocytes % 0.3 %; Immature Granulocytes Absolute 0.02 #; Lymphocytes # 2.6 10*3/uL (1.4-4.0); Lymphocytes % 38.4 % (21.3-54.2); Mean Corpuscular HGB Conc 32.4 GM/DL (32-36); Mean Corpuscular Volume 94.5 FL (87-102); Mean Platelet Volume 11.8 FL (9.6-12.0); Monocytes % 10.8 % (1.7-12.7); Neutrophils % 47.9 % (38.7-73.9); Platelet Count 157 T/CUMM (130-400); Red Blood Count 4.34 MC/CUMM (3.8-5.5); Red Cell Distribution Width 12.9 % (9.3-17.3); White Blood Count 6.7 T/CUMM (4-12)
[2019-05-26 06:48] LABS: Albumin 3.3 G/DL (3.4-5.0); Calcium 9.1 MG/DL (8.5-10.1); Osmolality,Calculated 287.8 MOS/KG (273-304); Risk Ratio 2.45; Thyroid Stimulating Hormone 0.221 uIU/ml (0.358-3.74); Total Protein 6.1 G/DL (6.4-8.3); VLDL CHOLESTEROL 20.8 MG/DL
[2019-05-26] MEDS: INSULIN REGULAR 100 UNIT/ML SUBCUT SCH ×4 (08:29→20:05)
[2019-05-26] MEDS ORDERED: PANTOPRAZOLE 40 MG TABLET PO SCH (09:00)
[2019-05-26] MEDS: PANTOPRAZOLE 40 MG TABLET PO SCH (09:46)
[2019-05-26] MEDS: DOCUSATE SODIUM 100 MG CAPSULE PO SCH ×2 (09:46→20:53)
[2019-05-26] MEDS: SODIUM CHLORIDE 0.9% 1,000 ML IV SCH ×2 (09:49→20:54)
[2019-05-26] MEDS ORDERED: POLYETHYLENE GLYCOL POWDER 17 GM PACK PO PRN (16:30)
[2019-05-26] MEDS: ENOXAPARIN 40 MG/0.4 ML SYRINGE SUBCUT SCH (17:00)
[2019-05-26] MEDS ORDERED: DONEPEZIL 10 MG TABLET PO SCH (20:00)
[2019-05-26] MEDS ORDERED: MONTELUKAST 10 MG TABLET PO SCH (20:00)
[2019-05-26] MEDS: MEMANTINE 10 MG TABLET PO SCH (20:53)
[2019-05-26] MEDS ORDERED: SIMVASTATIN 20 MG TABLET PO SCH (21:00)
[2019-05-27] MEDS: VANCOMYCIN 50 MG/ML 60 ML/BOTTLE PO SCH ×3 (00:58→12:45)
[2019-05-27] MEDS ORDERED: LEVOTHYROXINE 100 MCG TABLET PO SCH (06:30)
[2019-05-27] MEDS ORDERED: DOCUSATE SODIUM 100 MG CAPSULE PO SCH (08:00)
[2019-05-27] MEDS: INSULIN REGULAR 100 UNIT/ML SUBCUT SCH ×3 (08:09→16:35)
[2019-05-27] MEDS: MEMANTINE 10 MG TABLET PO SCH (09:45)
[2019-05-27] MEDS: DOCUSATE SODIUM 100 MG CAPSULE PO SCH (09:45)
[2019-05-27] MEDS: PANTOPRAZOLE 40 MG TABLET PO SCH (09:45)
[2019-05-27 12:05] VITALS: BP 97/72
[2019-05-27] MEDS: SODIUM CHLORIDE 0.9% 1,000 ML IV SCH (13:28)
[2019-05-27] MEDS: ENOXAPARIN 40 MG/0.4 ML SYRINGE SUBCUT SCH (16:35)
== END 2019-05-27 16:35 ==
LOC: N.ED 12:49 → N.EDINP 12:49 → SUATTDRO 17:12 → N.4E 17:25
PROVIDERS: ADMIT Internal Medicine; ATTEND Internal Medicine

== ENCOUNTER 2020-09-29 08:39 | Inpatient (IN) ==
[2020-09-29 09:14] LABS: Basophils # 0.1 10*3/uL (0.0-0.2); Basophils % 0.8 % (0.0-0.8); Eosinophils # 0.2 10*3/uL (0.0-0.87); Eosinophils % 2.5 % (0.00-10.9); Hematocrit 39.2 VOL% (35.7-47.0); Hemoglobin 13.1 GM/DL (12.0-16.0); Immature Granulocytes % 0.3 %; Immature Granulocytes Absolute 0.02 #; Lymphocytes # 1.7 10*3/uL (1.4-4.0); Lymphocytes % 26.7 % (21.3-54.2); Mean Corpuscular HGB Conc 33.4 GM/DL (32-36); Mean Corpuscular Volume 99.2 FL (87-102); Mean Platelet Volume 11.7 FL (9.6-12.0); Monocytes % 11.3 % (1.7-12.7); Neutrophils % 58.4 % (38.7-73.9); Platelet Count 128 T/CUMM (130-400); Red Blood Count 3.95 MC/CUMM (3.8-5.5); Red Cell Distribution Width 13.1 % (9.3-17.3); White Blood Count 6.4 T/CUMM (4-12)
[2020-09-29 09:36] LABS: INR 1.2; PT Patient Result 12.3 SECS (9.8-11.9)
[2020-09-29 10:04] LABS: Bacteria,Urine Moderate /HPF (Few); Bilirubin,Urine Negative (Negative); Blood, Urine Negative (Negative); Glucose,Urine (UA) Negative (Negative); Ketones,Urine Negative (Negative); Mucus,Urine Occasional /LPF (Occasional); Nitrite,Urine Negative (Negative); Protein,Urine Negative; RBC,Urine 1 /HPF (0-4); Urine Appearance CLEAR (Clear); Urine Color Yellow (Yellow); Urine Specific Gravity 1.025 (1.001-1.035); Urine Urobilinogen < 2.0 EU/DL (0.2-1.0); WBC,Urine 29 /HPF (0-6)
[2020-09-29] MEDS ORDERED: LEVOFLOXACIN INJ 500 MG in PREMIX 1 EACH IV STA (10:41)
[2020-09-29] MEDS ORDERED: PIPERACILLIN/TAZOBACTAM 3,375 MG VIAL IV ONE (11:20)
[2020-09-29] MEDS ORDERED: PIPERACILLIN/TAZOBACTAM 3,375 MG in SODIUM CHLORIDE 0.9% 100 ML IV STA (11:25)
[2020-09-29 11:30] LABS: Bilirubin,Total 0.8 MG/DL (0.2-1.0); Calcium 8.3 MG/DL (8.5-10.1); Potassium 3.3 MMOL/L (3.5-5.1); Total Protein 6.1 G/DL (6.4-8.3)
[2020-09-29] MEDS ORDERED: GLUCAGON 1 MG VIAL IM PRN (13:42)
[2020-09-29] MEDS ORDERED: ONDANSETRON 4 MG/2 ML VIAL IV PRN (13:42)
[2020-09-29] MEDS ORDERED: DEXTROSE 50% 25 GM/50 ML VIAL IV PRN (13:42)
[2020-09-29] MEDS ORDERED: POTASSIUM CHLORIDE 20 MEQ TABLET PO PRN (13:44)
[2020-09-29 14:50] LABS: Barbiturates Screen,Urine Negative (Negative); Benzodiazepines Screen,Urine Negative (Negative); Cannabinoid Screen,Urine Negative (Negative); Opiate Screen,Urine Negative (Negative); Phencyclidine Screen,Urine Negative (Negative)
[2020-09-30 06:07] LABS: Basophils % 0.4 % (0.0-0.8); Eosinophils # 0.1 10*3/uL (0.0-0.87); Hematocrit 41.8 VOL% (35.7-47.0); Hemoglobin 13.8 GM/DL (12.0-16.0); Immature Granulocytes % 0.6 %; Immature Granulocytes Absolute 0.04 #; Lymphocytes # 1.4 10*3/uL (1.4-4.0); Mean Corpuscular Volume 96.5 FL (87-102); Mean Platelet Volume 11.7 FL (9.6-12.0); Monocytes % 12.3 % (1.7-12.7); Neutrophils % 66.7 % (38.7-73.9); Platelet Count 148 T/CUMM (130-400); Red Blood Count 4.33 MC/CUMM (3.8-5.5); Red Cell Distribution Width 12.8 % (9.3-17.3); White Blood Count 7.2 T/CUMM (4-12)
[2020-09-30 06:24] LABS: Osmolality,Calculated 283.1 MOS/KG (273-304); Potassium 3.8 MMOL/L (3.5-5.1)
[2020-09-30 06:25] LABS: Risk Ratio 2.39
[2020-09-30] MEDS: PANTOPRAZOLE 40 MG TABLET PO SCH (08:08)
[2020-09-30] MEDS: cefTRIAXone 1,000 MG in SYRINGE 1 EACH IV SCH (16:10)
[2020-10-01 05:51] LABS: Basophils % 0.4 % (0.0-0.8); Eosinophils # 0.1 10*3/uL (0.0-0.87); Eosinophils % 0.9 % (0.00-10.9); Hematocrit 46.2 VOL% (35.7-47.0); Hemoglobin 15.3 GM/DL (12.0-16.0); Immature Granulocytes % 0.3 %; Immature Granulocytes Absolute 0.02 #; Lymphocytes # 1.4 10*3/uL (1.4-4.0); Lymphocytes % 18.2 % (21.3-54.2); Mean Corpuscular HGB Conc 33.1 GM/DL (32-36); Mean Corpuscular Volume 97.3 FL (87-102); Mean Platelet Volume 12.3 FL (9.6-12.0); Monocytes % 11.1 % (1.7-12.7); Neutrophils % 69.1 % (38.7-73.9); Platelet Count 153 T/CUMM (130-400); Red Blood Count 4.75 MC/CUMM (3.8-5.5); Red Cell Distribution Width 12.8 % (9.3-17.3); White Blood Count 7.7 T/CUMM (4-12)
[2020-10-01 06:10] LABS: Calcium 9.3 MG/DL (8.5-10.1); Osmolality,Calculated 277.5 MOS/KG (273-304); Potassium 4.1 MMOL/L (3.5-5.1)
[2020-10-01] MEDS: PANTOPRAZOLE 40 MG TABLET PO SCH (08:13)
[2020-10-01] MEDS ORDERED: ASPIRIN CHEW 81 MG TABLET PO SCH (09:00)
[2020-10-01] MEDS: cefTRIAXone 1,000 MG in SYRINGE 1 EACH IV SCH (16:12)
[2020-10-01] MEDS ORDERED: ATORVASTATIN 20 MG TABLET PO SCH (21:00)
[2020-10-01] MEDS: APIXABAN 2.5 MG TABLET PO SCH (21:55)
[2020-10-01] MEDS ORDERED: diphenhydrAMINE 50 MG/1 ML VIAL IV PRN (22:48)
[2020-10-02 05:54] LABS: Basophils % 0.2 % (0.0-0.8); Eosinophils # 0.3 10*3/uL (0.0-0.87); Eosinophils % 2.5 % (0.00-10.9); Hematocrit 48.7 VOL% (35.7-47.0); Hemoglobin 16.6 GM/DL (12.0-16.0); Immature Granulocytes % 0.4 %; Immature Granulocytes Absolute 0.04 #; Lymphocytes % 9.2 % (21.3-54.2); Mean Corpuscular HGB Conc 34.1 GM/DL (32-36); Mean Corpuscular Volume 95.3 FL (87-102); Mean Platelet Volume 12.2 FL (9.6-12.0); Monocytes % 10.9 % (1.7-12.7); Neutrophils % 76.8 % (38.7-73.9); Platelet Count 178 T/CUMM (130-400); Red Blood Count 5.11 MC/CUMM (3.8-5.5); Red Cell Distribution Width 13.2 % (9.3-17.3); White Blood Count 10.5 T/CUMM (4-12)
[2020-10-02 06:16] LABS: Calcium 9.2 MG/DL (8.5-10.1); Osmolality,Calculated 281.7 MOS/KG (273-304); Potassium 3.8 MMOL/L (3.5-5.1)
[2020-10-02 06:27] LABS: Platelet Estimate Adequate
[2020-10-02] MEDS ORDERED: ASPIRIN EC 81 MG TABLET PO SCH (09:00)
[2020-10-02] MEDS: APIXABAN 2.5 MG TABLET PO SCH (09:45)
[2020-10-02] MEDS: PANTOPRAZOLE 40 MG TABLET PO SCH (09:45)
[2020-10-02 11:10] VITALS: BP 119/85
== END 2020-10-02 13:50 | DRG 65 ==
LOC: N.ED 08:39 → N.EDINP 12:17 → N.3E 17:50
PROVIDERS: ADMIT Internal Medicine; ATTEND Internal Medicine

== ENCOUNTER 2021-09-14 08:06 | Observation (INO) ==
[2021-09-14] MEDS ORDERED: SODIUM CHLORIDE 0.9% 1,000 ML IV STA (08:47)
[2021-09-14 09:31] LABS: Bacteria,Urine Occasional /HPF (Few); Bilirubin,Urine Negative (Negative); Blood, Urine Negative (Negative); Glucose,Urine (UA) Negative (Negative); Ketones,Urine Negative (Negative); Mucus,Urine Occasional /LPF (Occasional); Nitrite,Urine Negative (Negative); Protein,Urine Negative; RBC,Urine <1 /HPF (0-4); Urine Appearance CLEAR (Clear); Urine Color Yellow (Yellow); Urine Specific Gravity 1.014 (1.001-1.035); Urine Urobilinogen < 2.0 EU/DL (0.2-1.0)
[2021-09-14 10:14] LABS: Albumin 2.2 G/DL (3.4-5.0); Bilirubin,Total 0.6 MG/DL (0.20-1.00); Calcium 8.8 MG/DL (8.5-10.1); Osmolality,Calculated 278.4 MOS/KG (273-304); Potassium 3.6 MMOL/L (3.5-5.1); Total Protein 6.2 G/DL (6.4-8.2)
[2021-09-14 11:27] LABS: Basophils # 0.1 10*3/uL (0.0-0.2); Basophils % 0.6 % (0.0-0.8); Eosinophils # 0.2 10*3/uL (0.0-0.87); Eosinophils % 1.5 % (0.00-10.9); Hematocrit 44.3 VOL% (35.7-47.0); Immature Granulocytes % 0.3 %; Immature Granulocytes Absolute 0.03 #; Lymphocytes # 2.4 10*3/uL (1.4-4.0); Lymphocytes % 22.8 % (21.3-54.2); Mean Corpuscular HGB Conc 31.6 GM/DL (32-36); Mean Corpuscular Volume 94.1 FL (87-102); Mean Platelet Volume 12.2 FL (9.6-12.0); Monocytes % 10.4 % (1.7-12.7); Neutrophils % 64.4 % (38.7-73.9); Platelet Count 211 T/CUMM (130-400); Red Blood Count 4.71 MC/CUMM (3.8-5.5); Red Cell Distribution Width 14.6 % (9.3-17.3); White Blood Count 10.5 T/CUMM (4-12)
[2021-09-14] MEDS ORDERED: DEXTROSE 50% 25 GM/50 ML VIAL IV PRN (11:54)
[2021-09-14] MEDS ORDERED: ONDANSETRON 4 MG/2 ML VIAL IV PRN (11:54)
[2021-09-14] MEDS ORDERED: ACETAMINOPHEN 325 MG TABLET PO PRN (11:54)
[2021-09-14] MEDS ORDERED: GLUCAGON 1 MG VIAL IM PRN (11:54)
[2021-09-14] MEDS ORDERED: DOCUSATE SODIUM 100 MG CAPSULE PO PRN (11:54)
[2021-09-14] MEDS ORDERED: FUROSEMIDE 20 MG TABLET PO PRN (11:57)
[2021-09-14] MEDS ORDERED: ALBUTEROL 2.5 MG/3 ML NEB RESP TX PRN (12:02)
[2021-09-14 12:29] LABS: Anisocytosis Slight; Macrocytosis Slight
[2021-09-14 12:30] LABS: Spherocytes Few
[2021-09-14 12:43] LABS: Platelet Estimate Normal
[2021-09-14] MEDS ORDERED: BACLOFEN 5 MG PO SCH (14:00)
[2021-09-14] MEDS ORDERED: TROLAMINE SALICYLATE 10% CREAM 85 GM TUBE TOP PRN (15:43)
[2021-09-14] MEDS ORDERED: CALAMINE LOTION 180 ML BOTTLE TOP PRN (15:43)
[2021-09-14] MEDS: CYPROHEPTADINE 4 MG TABLET PO SCH ×2 (17:26→22:16)
[2021-09-14] MEDS ORDERED: NON-FORMULARY MEDICATION (Amino Acids-Protein Hydrolys [Pro-Stat Sugar Free] 15-100 gram-k PO SCH (20:00)
[2021-09-14] MEDS ORDERED: PANTOPRAZOLE 40 MG TABLET PO SCH (21:00)
[2021-09-14] MEDS ORDERED: ATORVASTATIN 20 MG TABLET PO SCH (21:00)
[2021-09-14] MEDS ORDERED: MONTELUKAST 10 MG TABLET PO SCH (21:00)
[2021-09-14] MEDS: APIXABAN 2.5 MG TABLET PO SCH (22:16)
[2021-09-14] MEDS: CALCIUM (CARBONATE)/VITAMIN D 600 MG-400 UNIT TABLET PO SCH (22:17)
[2021-09-14] MEDS: MAGNESIUM OXIDE 400 MG TABLET PO SCH (22:17)
[2021-09-14] MEDS: METOPROLOL TARTRATE 50 MG TABLET PO SCH (22:17)
[2021-09-15 05:23] LABS: Basophils # 0.1 10*3/uL (0.0-0.2); Basophils % 0.6 % (0.0-0.8); Eosinophils # 0.1 10*3/uL (0.0-0.87); Eosinophils % 0.6 % (0.00-10.9); Hematocrit 44.2 VOL% (35.7-47.0); Hemoglobin 14.2 GM/DL (12.0-16.0); Immature Granulocytes % 0.3 %; Immature Granulocytes Absolute 0.03 #; Lymphocytes # 1.9 10*3/uL (1.4-4.0); Mean Corpuscular HGB Conc 32.1 GM/DL (32-36); Mean Corpuscular Volume 93.6 FL (87-102); Mean Platelet Volume 12.2 FL (9.6-12.0); Monocytes % 8.2 % (1.7-12.7); Neutrophils % 70.3 % (38.7-73.9); Platelet Count 282 T/CUMM (130-400); Red Blood Count 4.72 MC/CUMM (3.8-5.5); Red Cell Distribution Width 14.8 % (9.3-17.3); White Blood Count 9.6 T/CUMM (4-12)
[2021-09-15 05:44] LABS: Calcium 8.7 MG/DL (8.5-10.1); Potassium 3.9 MMOL/L (3.5-5.1); Thyroid Stimulating Hormone 3.05 uIU/ml (0.358-3.74)
[2021-09-15] MEDS ORDERED: LEVOTHYROXINE 88 MCG TABLET PO SCH (06:00)
[2021-09-15] MEDS ORDERED: ASPIRIN CHEW 81 MG TABLET PO SCH (09:00)
[2021-09-15] MEDS ORDERED: MULTIVITAMIN (CENTRUM) TABLET PO SCH (09:00)
[2021-09-15] MEDS ORDERED: POLYETHYLENE GLYCOL POWDER 17 GM PACK PO SCH (09:00)
[2021-09-15] MEDS ORDERED: CHOLECALCIFEROL 1,000 UNIT TABLET PO SCH (09:00)
[2021-09-15] MEDS: APIXABAN 2.5 MG TABLET PO SCH (10:04)
[2021-09-15] MEDS: CALCIUM (CARBONATE)/VITAMIN D 600 MG-400 UNIT TABLET PO SCH (10:04)
[2021-09-15] MEDS: METOPROLOL TARTRATE 50 MG TABLET PO SCH (10:05)
[2021-09-15] MEDS: MAGNESIUM OXIDE 400 MG TABLET PO SCH (10:05)
[2021-09-15] MEDS: CYPROHEPTADINE 4 MG TABLET PO SCH ×3 (10:05→17:37)
[2021-09-15] MEDS ORDERED: ZINC OXIDE PASTE 113 GM TUBE TOP SCH (15:00)
[2021-09-15 15:36] VITALS: BP 106/84
== END 2021-09-15 17:36 | disposition hospice, inpatient (51) ==
LOC: EDBD → EDUNIT# → N.EDINP 08:06 → N.ED 08:06 → N.5E 15:36
PROVIDERS: ADMIT Internal Medicine; ATTEND Internal Medicine